=== PATIENT | female | born 1970 | race Caucasian/White ===

== ENCOUNTER 2021-04-20 14:11 | Emergency (ER) | payer OTHER, SELFPAY ==
--- NOTE | ~2021-04-20 | CT_ITS ---
EXAMINATION: CT SOFT TISSUE NECK WITH CONTRAST CLINICAL INFORMATION: Right-sided neck/throat pain. Swelling. Retroperitoneal abscess. Dental abscess. COMPARISON: None available. TECHNIQUE: Multidetector helical imaging was performed in the axial plane following the administration of 50 mL of Omnipaque 350 intravenous contrast. Multiple axial reformats and coronal/sagittal reconstructions were created the technologist workstation for review. This CT examination was performed using dose optimization techniques as appropriate, variously including the following: *Automated exposure control. *Adjustment of mA and/or kV according to patient size (this includes techniques or standardized protocols for targeted exams where dose is matched to indication/reason for exam; i.e. extremities or head). *Use of iterative reconstruction technique. DLP: 377 mGy-cm FINDINGS: No significant cutaneous thickening or subcutaneous inflammation. No discrete fluid collection within the deep tissues of the neck. The premaxillary, retromaxillary, pterygopalatine fossa, orbital apical, parapharyngeal, and prelaryngeal adipose tissue is maintained. Normal appearance of the parotid, submandibular, and thyroid glands. Scattered subcentimeter lymph nodes bilaterally, none of which are pathologically enlarged or abnormally enhancing. No demonstrated focal lesion or abnormal enhancement within the intrinsic tissues of the tongue or floor of mouth. Normal mucosal contours of the pharynx and larynx without abnormal enhancement. Normal appearance of the hyoid bone, thyroid cartilage, or cartilaginous trachea. The airways remains widely patent. No radiopaque foreign bodies. The atlantooccipital and atlantoaxial articulations remain well aligned. Reversal the normal cervical lordosis centered on C5-C6. No evidence of acute fracture or subluxation of the cervical spine. The vertebral body heights are maintained. Advanced degenerative disc disease at C5-C6 and C6-C7. Mild degenerative disc disease at all additional cervical levels. Facet and uncovertebral joint arthropathy leads to osseous encroachment on the neural foramina from C3-C7. No evidence of epidural collection. There is no prevertebral soft tissue swelling. Normal opacification of the cervical arterial and venous structures. The visualized portion of the skull base is without significant abnormalities. Moderate mucosal thickening of the paranasal sinuses. The mastoid air cells and middle ear cavities are clear. Multifocal maxillary and mandibular odontogenic enamel erosions. Periapical lucencies associated with the maxillary left 2nd molar, right 1st premolar, and mandibular right-sided molar. No discrete talita-odontogenic fluid collection. Moderate degenerative arthropathy of the temporal mandibular joints. CT Upper Chest: Biapical pleural scarring. The visualized lung apices and upper mediastinum are within normal limits. CT/CT soft tissue neck w con IMPRESSION: 1. No demonstrated focal lesion, collection, lymphadenopathy, or abnormal enhancement within the soft tissues of the neck. 2. Moderate to advanced multifocal odontogenic disease. No discrete talita-odontogenic fluid collection. 3. Moderate sinonasal mucosal disease.
[2021-04-20 14:13] VITALS: BP 107/68; PULSE 79; RESP 18; TEMP 37.1; O2SAT 98; BMI 20.7
--- NOTE | 2021-04-20 15:20 | ED_ITS ---
HPI - Dental/Oral General Chief complaint: Dental/Oral Stated complaint: Dental/oral Time Seen by Provider: 04/20/21 15:06 Source: patient Mode of arrival: ambulatory Limitations: no limitations History of Present Illness HPI Narrative: 50-year-old female with nonsignificant past medical history presents to the ED from dental office with concern for abscess. Patient is on day 5 oral antibiotic treatment( clindamycin) for right lower dental infection. Patient is scheduled for extraction tomorrow however dentist saw her today due to accelerated discomfort and trouble swelling. Patient states it feels like th e right side of her throat is swollen making it difficult to breathe and swallow at times. Denies fevers but admits to chills denies chest pain or shortness of breath denies abdominal pain nausea vomiting or recent changes in bowel or bladder habits. States she has been taking antibiotics as directed and has not missed a dose. Due to concern was recommended she come to the ED to rule out a deeper infection. Related Data Previous Rx's Medication Instructions Recorded oxycodone 5 mg PO Q6H PRN #8 tab 04/20/21 Allergies Allergy/AdvReac Type Severity Reaction Status Date / Time No Known Allergies Allergy Verified 04/20/21 14:12 Review of Systems Review of Systems: Constitutional : No Weight loss, No Fever, + Chills, No Night Sweats, No Fatigue, No Malaise ENT/Mouth : No Hearing loss, No Ear Pain, No Nasal Congestion, No Sinus Pain, No Hoarseness, No sore throat, No Rhinorrhea, + Swallowing pain, + dental pain Eyes: No Eye Pain, No Swelling, No Redness, No Foreign Body, No Discharge, No Vision Changes Cardiovascular : No Chest Pain, No SOB, No Dyspnea on Exertion, No Orthopnea, No Edema, No Palpitations Respiratory : No Cough, No Sputum, No Wheezing, No Smoke Exposure, No Dyspnea Gastrointestinal : No Nausea, No Vomiting, No Diarrhea, No Constipation, No abdominal Pain, No Hematochezia, No Melena Genitourinary : no irregular bleeding, No Dysuria, No Urinary Frequency, No Hematuria, No Urinary Incontinence, No Urgency, No Flank Pain, No Urinary Flow Changes, No Hesitancy Musculoskeletal : No joint pain, No Myalgias, No Joint Swelling Skin : No Skin Lesions, No rash Neuro : No Weakness, No Numbness, No Paresthesias, No Loss of Consciousness, No Dizziness, No Headache Psych : No Anxiety/Panic, No Depression, No SI/HI/AH/VH, No Social Issues, Heme/Lymph: No Bruising, No Bleeding,No Lymphadenopathy Endocrine : No Polyuria, No Polydipsia, No Temperature Intolerance [facility] Past Medical History Attestation statement: The following information was validated with the patient. Source: old records reviewed and obtained from family Medical History (Updated 04/20/21 @ 18:17 by KAYLA Sevilla) Anxiety Depression Rheumatoid arthritis Social History Social History Advance Directives: Yes Advance Directives Information Provided: Yes Advance Directives on File: No Patient : No Physical Exam Vital Signs: Vital Signs: Last Vital Signs Temp 97.5 F 04/20/21 17:25 Pulse 73 04/20/21 17:25 Resp 16 04/20/21 17:25 BP 113/68 04/20/21 17:25 Pulse Ox 100 04/20/21 17:25 Body Mass Index 20.7 vital signs have been reviewed as normal and appeared to be correct. Blood pressure normal. Heart rate normal. Respiration rate normal. Temperature normal. Oxygen saturation normal. Appearance: Alert. Oriented X3. No acute distress. Head: Normal external exam. Normocephalic. Atraumatic. No Sanchez signs noted. No raccoon eyes noted Eyes: PERRLA. EOMI. Conjunctiva and sclera normal. Eyelids normal. ENT: EAC normal. TM's Normal. Pharynx normal. Uvula midline. Moist mucous membranes. No trismus noted. No drooling noted. No muffled voice noted. + dental pain to right low posterior jaw, mild erythema and edema to this region without decrete abscess Neck: Normal inspection. Neck supple. FROM. No adenopathy. No meningeal signs. No neck mass noted.Pain to palpation of right anterior lateral neck muscles. Mild lymphadenopathy noted. CVS: Normal heart rate and rhythm. Heart sound normal. No murmurs noted. Pulses normal throughout. Respiratory: No respiratory distress. Painless inspiration. Breath sounds normal. No wheezes/rales/rhonchi noted. Chest nontender. No accessory muscle usage noted or decreased air movement noted. Abdomen: Soft and nontender. Bowel sounds normal in all 4 quadrants. No distention noted. Back: No CVA tenderness. Full range of motion noted. Skin: Skin warm and dry. Normal skin color. Normal skin turgor. No rashes/le sions/lacerations noted. Extremities: No lower extremity edema. Extremities exhibit normal range of motion. Extremities nontender. Neuro: Oriented X 3. No motor deficit. No sensory deficit. Course Reevaluation(s) Reevaluation #1: Patient's blood work and CT imaging returning without acute findings no evidence of [employer] or RPA. Patient did have improvement of symptoms with morphine still complaining of mild right-sided lower jaw pain. Given the absence of fever or leukocytosis do not think the patient requires change in antibiotic at this time feel that she would most benefit from tooth extraction scheduled for tomorrow. Spoke in length patient's preference is to go home I feel this is reasonable discharge home with continued pain meds and close outpatient follow-up as scheduled with strict return precautions. MDM - Dental/Oral MDM Narrative Medical decision making narrative: Patient's vital signs are stable and she is afebrile. Patient presenting to the ED with progressive right lower dental infection and new pain with swelling and difficulty breathing. Concern for deeper infection such as peritonsillar abscess or retropharyngeal abscess as exist. No signs of peritonsillar abscess on exam no uvula deviation no soft palate fullness no trismus. Tenderness to palpation of the right anterior neck concerning for our RPA will obtain CT scan of this region looking for evidence of deep/extensive dental infection and/or RPA will obtain basic blood work and COVID swab. Will continue to monitor and reassess pending the above. Of note no palpable dental abscess or collection noted on exam that would benefit from drainage in the ED today. Lab Data Result diagrams: 04/20/21 15:30 04/20/21 15:30 Labs: Lab Results 04/20/21 04/20/21 04/20/21 Range/Units 15:30 15:30 15:30 WBC 7.4 (4.8-10.8) X10*3/uL RBC 3.81 L (4.20-5.50) X10*6/uL Hgb 12.4 (12.0-16.0) g/dl Hct 37.2 (37-47) % MCV 97.6 (80-98) fL MCH 32.5 (27.0-33.0) pg MCHC 33.3 (31.0-35.0) g/dl RDW 13.9 (11.0-16.0) % Plt Count 223 (160-400) X10*3/uL MPV 8.9 L (9.4-12.3) fL Immature Gran % (Auto) 0.4 (0.0-0.4) % Neut % (Auto) 58.1 (45-73) % Lymph % (Auto) 25.1 (20-40) % Coos % (Auto) 9.4 (2-11) % Eos % (Auto) 5.9 H (0-4) % Baso % (Auto) 1.1 (0-2) % Lymph # (Auto) 1.9 (1.2-4.9) X10*3/uL Coos # (Auto) 0.7 (0.1-1.2) X10*3/uL Eos # (Auto) 0.4 (0.0-0.4) X10*3/uL Baso # (Auto) 0.1 (0.0-0.2) X10*3/uL Abs Immat Gran (auto) 0.03 (0.00-0.03) X10*3/uL Absolute Neuts (auto) 4.3 (2.0-8.3) X10*3/uL Absolute Nucleated RBC 0.000 (0.0-0.012) X10*3/uL Nucleated RBC % (auto) 0.0 (0.0-0.2) /100WBC Sodium 141 (135-145) mmol/L Potassium 4.0 (3.3-5.1) mmol/L Chloride 98 (96-108) mmol/L Carbon Dioxide 35 H (22-29) mmol/L Anion Gap 12 (12-20) BUN 13 (9-16) mg/dL Creatinine 1.11 (0.5-1.4) mg/dL Estim Creat Clear Calc 49.6 Estimated GFR 52 Random Glucose 93 (60-115) mg/dL Calcium 9.2 (8.4-10.2) mg/dL Total Bilirubin 0.3 (0.0-1.0) mg/dL AST 35 H (5-31) U/L ALT 15 (0-31) U/L Alkaline Phosphatase 47 (39-117) U/L Total Protein 6.6 (6.5-8.0) g/dL Albumin 3.7 (3.5-5.0) g/dL COVID-19 (MANGO) Negative (Negative) COVID-19 Clin Com See Note Discharge Plan Discharge Clinical Impression: Dental abscess Patient Disposition: Home, Self-Care Instructions: Dental Abscess (ED) Additional Instructions: You were seen in the emergency department today due to ongoing right lower jaw pain and swelling as well as involvement of the right throat/neck. Blood work was drawn and was normal. A CT scan of your neck was performed without evidence of abscess in the mouth that would benefit from drainage or in the neck. Your pain is likely secondary to dental infection/small abscess underneath the tooth itself it is important that you follow through with appointment tomorrow to have this pulled. Continue home antibiotics as directed. Use oxycodone as needed for severe pain. Prescriptions: New oxycodone 5 mg tablet 5 mg PO Q6H PRN (Reason: pain) Qty: 8 RF: 0 Interventions: ED Discharge Assessment Last Done: 04/20/21 18:30 Discharge Date/Time: 04/20/21 18:37 Print Language: Estonian
[2021-04-20 15:35] LABS: MANUAL DIFF FLAG NO
[2021-04-20] MEDS: Morphine Sulfate 4 MG/ML CARTRIDGE IVPUSH ×2 (15:36→17:56)
[2021-04-20 15:40] LABS: Basophils Absolute Auto 0.1 X10*3/uL (0.0-0.2); Basophils Percent Auto 1.1 % (0-2); Eosinophils Absolute Auto 0.4 X10*3/uL (0.0-0.4); Eosinophils Percent Auto 5.9 % (0-4); Hematocrit 37.2 % (37-47); Hemoglobin 12.4 g/dl (12.0-16.0); Imm Gran Abs Auto 0.03 X10*3/uL (0.00-0.03); Imm Gran Pct Auto 0.4 % (0.0-0.4); Lymphocytes Absolute Auto 1.9 X10*3/uL (1.2-4.9); Lymphocytes Percent Auto 25.1 % (20-40); Mean Corpuscular HGB Conc 33.3 g/dl (31.0-35.0); Mean Corpuscular Hemoglobin 32.5 pg (27.0-33.0); Mean Corpuscular Volume 97.6 fL (80-98); Mean Platelet Volume 8.9 fL (9.4-12.3); Monocytes Absolute Auto 0.7 X10*3/uL (0.1-1.2); Monocytes Percent Auto 9.4 % (2-11); Neutrophils Absolute Auto 4.3 X10*3/uL (2.0-8.3); Neutrophils Percent Auto 58.1 % (45-73); Platelet Count 223 X10*3/uL (160-400); Red Blood Count 3.81 X10*6/uL (4.20-5.50); Red Cell Distribution Width 13.9 % (11.0-16.0); White Blood Count 7.4 X10*3/uL (4.8-10.8)
--- NOTE | 2021-04-20 15:41 | PC.NURSE ---
20 ga iv initiated l ac. pt has no muffling or drooling noted. ct ordered, awatiing lab results prior to ct.
[2021-04-20 15:59] LABS: Alanine Aminotransferase 15 U/L (0-31); Albumin Level 3.7 g/dL (3.5-5.0); Alkaline Phosphatase 47 U/L (39-117); Anion Gap 12 (12-20); Aspartate Amino Transferase 35 U/L (5-31); Bilirubin Total 0.3 mg/dL (0.0-1.0); Blood Urea Nitrogen 13 mg/dL (9-16); COVID-19 Test Negative (Negative); Calcium 9.2 mg/dL (8.4-10.2); Carbon Dioxide 35 mmol/L (22-29); Chloride 98 mmol/L (96-108); Creatinine Clr Calc Pharmacy 49.6; Estimated Glomerular Filt Rate 52; Glucose Random 93 mg/dL (60-115); Sodium 141 mmol/L (135-145); Total Protein 6.6 g/dL (6.5-8.0)
[2021-04-20] MEDS: iohexoL 350 MG/ML 100 ML INFUS..BTL IV (16:41)
[2021-04-20 17:25] VITALS: BP 113/68; PULSE 73; RESP 16; TEMP 36.4; O2SAT 100
== END 2021-04-20 18:37 | disposition home or self-care (01) ==
PROVIDERS: Physician Assistant; Emergency Provider Emergency Medicine; PCP Internal Medicine
DX: K04.7 Periapical abscess without sinus (principal); M54.2 Cervicalgia; R07.0 Pain in throat; Z20.822 Contact with and (suspected) exposure to COVID-19; Z79.899 Other long term (current) drug therapy
CPT/HCPCS: 36415; 70491; 80053; 85025; 87635; 96374; 96375; 99284; J2270; Q9967

== ENCOUNTER 2023-04-01 16:15 | Outpatient (REF) | payer OTHER, SELFPAY ==
--- NOTE | ~2023-04-01 | XR_ITS ---
EXAMINATION: XR WRIST, RIGHT CLINICAL INFORMATION: Right wrist pain COMPARISON: Right hand 10/24/2018 TECHNIQUE: PA, lateral, and oblique views of the right wrist. FINDINGS: Redemonstration of slight ulnar minus variance. Stable subtle deformity along the mid shaft of the fifth metacarpal, possibly related to prior trauma. Progression of advanced degenerative changes first carpometacarpal joint with joint space narrowing and hypertrophic change. XR/XR wrist RT min 3V IMPRESSION: 1. Progression of advanced degenerative changes first carpometacarpal joint. 2. No displaced fracture. Recommend follow-up imaging in 10-14 days if fracture is suspected. Stat report provided to referring provider as requested at time the exam was presented for interpretation.
== END 2023-04-01 16:16 | disposition home or self-care (01) ==
LOC: HO.HMGCX 16:15
PROVIDERS: PCP Internal Medicine; Visit Provider Internal Medicine Rheumatology
DX: M06.9 Rheumatoid arthritis, unspecified (principal)
CPT/HCPCS: 73110

== ENCOUNTER 2025-01-17 13:37 | Outpatient (REF) | payer OTHER, SELFPAY ==
[2025-01-17 16:00] LABS: MANUAL DIFF FLAG NO
[2025-01-17 16:04] LABS: Basophils Absolute Auto 0.1 X10*3/uL (0.0-0.2); Eosinophils Absolute Auto 0.5 X10*3/uL (0.0-0.4); Eosinophils Percent Auto 5.7 % (0-4); Hematocrit 41.7 % (37.0-47.0); Hemoglobin 14.5 g/dl (12.0-16.0); Imm Gran Abs Auto 0.02 X10*3/uL (0.00-0.03); Imm Gran Pct Auto 0.3 % (0.0-0.4); Lymphocytes Percent Auto 50.6 % (20-40); Mean Corpuscular HGB Conc 34.8 g/dl (31.0-35.0); Mean Corpuscular Volume 89.1 fL (80.0-98.0); Monocytes Absolute Auto 0.8 X10*3/uL (0.1-1.2); Monocytes Percent Auto 10.2 % (2-11); Neutrophils Absolute Auto 2.5 x10*3/uL (2.0-8.3); Neutrophils Percent Auto 32.2 % (45-73); Platelet Count 318 X10*3/uL (160-400); Red Blood Count 4.68 X10*6/uL (4.20-5.50); Red Cell Distribution Width 13.2 % (11.0-16.0); White Blood Count 7.9 X10*3/uL (4.8-10.8)
[2025-01-17 16:15] LABS: Prothrombin Time 11.4 SEC (10.9-12.4)
--- OUTSIDE RECORDS SUMMARY | 2025-01-17 16:28 | XMS_ITS | Encounter Summary ---
Author Organization [employer] Address [address] [place] [address] Care Team Providers Care Shell Sorter Name Role Phone Unavailable Primary Care Provider Unavailabl e Encounter Details Date Type Department Care Team (Late st Contact Info) Description 12/10/2022 Abstract [facility] [address] [place] [address] Yogesh Salvador DMD Social History Tobacco Use Types Packs/Day Years Used Date Smoking Tobacco: Former Cigarettes Smokeless Tobacco: Never Alcohol Use Standard Drinks/Week Comments Yes 0 (1 standard drink = 0.6 oz pur e alcohol) Comments Unknown Sex and Gender Information Value Date Recorded Sex Assigned at Female 08/09/2022 10:35 AM EDT Legal Sex Female 10:35 AM EDT Gender Identity Female 08/09/2022 10:35 AM EDT Sexual Orientation Straight 08/09/2022 10 :35 AM EDT COVID-19 Exposure Response Date Recorded In the last 10 days, have yo u been in contact with someone who was confirmed or suspected to have Coronavirus/COVID-19? No / Unsure 12/02/2022 2:59 PM EST documented as of this encounter Plan of Treatment Not on file documented as of this encounter Visit Diagnoses Not on filedocumented in this encounter
--- OUTSIDE RECORDS SUMMARY | 2025-01-17 16:28 | XMS_ITS | Encounter Summary ---
Author Organization [facility] Address [address] [place] [address] Care Team Providers Care Health Care Aide Name Role Phone Sandro Dowling MD Primary Care Provider [phone] Reason for Visit * Reason Comments Consult EP EVAL Encounter Details Date Type Department Care Team (Late st Contact Info) Description 01/15/2025 8:[address] [facility] [address] [facility] [address] [place] [phone] Sandro Waller MD [address] [facility] [address] [place] [address] PSVT (paroxysmal supraventricular tachycardia) (CMS/HCC V24) (Primary Dx) Social History Tobacco Use Types Packs/Day Years Used Date Smoking Tobacco: Former Cigarettes Smokeless Tobacco: Never Comments:Quit August or 2022. Alcohol Use Standard Drinks/Week Comments Yes 0 (1 standard drink = 0.6 oz pur e alcohol) RARELY Comments Unknown Sex and Gender Information Value Date Recorded Sex Assigned at Not on file Legal Sex Female 10:14 AM EST Gender Identity Not on file Sexual Orientation Not on file documented as of this encounter Last Filed Vital Signs Vital Sign Reading Time Taken Comments Blood Pressure 102/68 01/15/2025 8:30 AM EDT Pulse 82 01/15/2025 8:30 AM EDT Temperature - - Respiratory Rate - - Oxygen Saturation 97% 01/15/2025 8:30 AM EDT Inhaled Oxygen Concentration - - Weight 51.7 kg (114 lb) 01/15/2025 8:30 AM EDT Height 153 cm (5' 0.25 ) 01/15/2025 8:30 AM EDT Body Mass Index 22.08 01/15/2025 8:30 AM EDT documented in this encounter Ordered Prescriptions Prescription Sig Dispense Quantity Refills Last Filled Start Date End Date propranolol LA (Inderal LA) 60 mg 24 hr capsule Take 1 capsule (60 mg total) by mouth 1 (one) time each day. Do not crush, chew, or split. 30 each 11 01/15/2025 documented in this encounter Progress Notes * Sandro Waller MD - 01/15/2025 8:40 AM EDT Dear Sandro Dowling MD: Thank you for requesting cardiology consultation on your patient, Chhaya Frazier. As you know,this is a 54-year-old female with a history of Gitelman syndrome, rheumatoid arthritis and possiblySjogren's syndrome. She has been troubled by episodes of fainting where she feels like her heart isbeating rapidly and about to jump out of her chest. Few of these have led to loss of consciousness with others resolving spontaneously. She wore a Holter monitor where she reported palpitations on several occasions but there was no arrhythmia. He did have a 7 Day Loop recorder that I am not able toreview that showed some periods of transient tachycardia. Echocardiogram very recently that was normal with normal LV function. She has no significant valvular disease. Previous echo suggested possible right ventricular hypertrophy but it is not evident on this study and there is no pulmonary hypertension or tricuspid valve or pulmonic valve abnormalities. Her baseline ECG is normal with a slightly vertical axis. There is a narrow QRS complex and normal LA interval. The patient was seen in the emergency room for palpitations yesterday and was given some potassium and magnesium for mild hypokalemia and hypomagnesemia but otherwise was found to have no significant arrhythmias. There is a strong family history of premature coronary disease and cardiac arrest. PAST MEDICAL HISTORY: Patient Active Problem List Diagnosis Date Noted Palpitations 01/08/2025 Syncope 12/17/2024 Abnormal ECG 12/17/2024 PSVT (paroxysmal supraventricular tachycardia) (CMS/HCC) 12/14/2024 FAMILY HISTORY: Family History Problem Relation Name Age of Onset Heart attack Father Other (CABG) Father Other (CARDIAC ARREST) Father Heart attack Maternal Grandmother Other (CARDIAC ARREST) Paternal Grandfather SOCIAL HISTORY: Social History Tobacco Use Smoking status: Former Types: Cigarettes Smokeless tobacco: Never Tobacco comments: Quit August or September 2023. Substance Use Topics Alcohol use: Yes Comment: RARELY ACTIVE MEDICATIONS: Outpatient Medications Marked as Taking for the 01/15/25 encounter (Consult) with Sandro Waller MD Medication Sig Dispense Refill adalimumab-atto (Amjevita,CF, Autoinjector) 40 mg/0.8 mL auto-injector Inject 40 mg under the skin every 14 (fourteen) days. albuterol HFA (PROAIR HFA ; PROVENTIL HFA ; VENTOLIN HFA) 90 mcg/actuation inhaler Inhale 2 puffs by mouth every 6 (six) hours if needed for wheezing. busPIRone (BUSPAR) 15 mg tablet Take 1 tablet (15 mg total) by mouth at bedtime. diclofenac (VOLTAREN) 75 mg EC tablet Take 1 tablet (75 mg total) by mouth 1 (one) time each day ifneeded. Do not crush, chew, or split. DULoxetine (CYMBALTA) [address] capsule Take 1 capsule (30 mg total) by mouth 1 (one) time each day.Taken with 60 mg to equal 90 mg DULoxetine (CYMBALTA) [address] capsule Take 1 capsule (60 mg total) by mouth 1 (one) time each day.Taken with 30 mg to equal 90 mg estradioL (ESTRACE) 1 mg tablet Take 1 tablet (1 mg total) by mouth 1 (one) time each day. folic acid (FOLVITE) 1 mg tablet Take by mouth 1 (one) time each day. gabapentin (NEURONTIN) 100 mg capsule Take 4 capsules (400 mg total) by mouth at bedtime. levothyroxine (SYNTHROID, LEVOTHROID) 100 mcg tablet Take by mouth 1 (one) time each day before breakfast. magnesium oxide 500 mg magnesium tablet Take 500 mg by mouth 2 (two) times a day. meclizine HCl (MECLIZINE ORAL) Take 25 mg by mouth every 12 (twelve) hours if needed. methotrexate 2.5 mg tablet Take 8 tablets (20 mg total) by mouth 1 (one) time per week Follow directions carefully, and ask to explain any part you do not understand. Take exactly as directed. omeprazole (PriLOSEC) [address] capsule Take 1 capsule (20 mg total) by mouth 1 (one) time each day if needed. Do not crush or chew. oxyCODONE-acetaminophen (PERCOCET) 10-325 mg per tablet Take 1 tablet by mouth every 6 (six) hours if needed for severe pain. Max Daily Amount: 4 tablets potassium chloride (KLOR-CON M10) 10 mEq CR tablet Take 2 tablets (20 mEq total) by mouth 2 (two) times a day. Tablet may be swallowed whole (do not crush/chew/suck on) OR broken in half and each half swallowed separately OR dissolved (whole tablet) in ~4 ounces of water (allow ~2 minutes to dissolve, stir well and administer immediately). spironolactone (ALDACTONE) 25 mg tablet Take 1 tablet (25 mg total) by mouth 2 (two) times a day. ALLERGIES: Allergies Allergen Reactions Medrol [Methylprednisolone] Sumatriptan PHYSICAL EXAM: Vitals: 01/15/25 0830 BP: 102/68 BP Location: Right arm Patient Position: Sitting Pulse: 82 SpO2: 97% Weight: 51.7 kg (114 lb) Height: 1.53 m (60.25 ) APPEARANCE: Alert and in no acute distress EYES: PERRL, conjunctiva and sclera normal NECK: Neck supple, 2+ carotid pulses, No bruits. HEART: RRR with normal S1 and S2, no murmurs, no gallops, no JVD appreciated LUNG: clear to auscultation ABDOMEN: Bowel sounds normoactive, no bruits, soft, non-tender, without organomegaly or palpable masses, no abdominal bruits EXTREMITIES: Extremities warm and well perfused without clubbing, cyanosis, or edema NEURO: Awake, alert and oriented x 3, Cranial nerves II-XII grossly intact SKIN: Skin color, texture, turgor normal. No rashes or lesions. PSYCH: Mood and affect are appopriate. MSK: Moves all extremities EKG: Sinus rhythm 82 bpm. Vertical axis but otherwise normal. TESTING: Reviewed echocardiogram and Holter monitor Recent ER laboratories reviewed. White count 6.5, hematocrit 45.8, platelets 287, potassium 3.4, creatinine 0.99, magnesium 1.6, TSH 2.89 ASSESSMENT/PLAN: Problem List Items Addressed This Visit PSVT (paroxysmal supraventricular tachycardia) ([facility]) - Primary Relevant Orders ECG 12 lead (Completed) Orders Placed This Encounter Procedures ECG 12 lead 1. Syncope 2. Palpitations This delightful 54-year-old female with Gitleman syndrome resulting in hypokalemia and hypomagnesemia presents with recurrent syncope that is likely blood pressure related. She tends to run a very low blood pressure and I suspect that she is having an orthostatic response to hypotension. I am awaiting the report to review her 7-day monitor but given there was some transient tachycardia I think trial of a low-dose beta-jose would be reasonable. The blood pressure lowering effects are generally quite minimal at low dose in patients with a hypertension. If it does result in worsening low blood pressure then we can try fludrocortisone. I would not rule out electrophysiologic study and ablation but I need to review the 7-day monitor and it does not sound like she is likely to have arrhythmia amenable to ablation. Implantable loop recorder is reasonable given her symptoms and recurrent syncope but I have a low suspicion that she will have a malignant arrhythmia as etiology based on the Ho lter having many episodes of palpitations without a corresponding arrhythmia. I did encourage her to maintain adequate salt intake for improved blood pressure and will trial 60 mg of long-acting propranolol. I reviewed the potential side effects of beta-blockers and she is in agreement to a trial. Thank you for requesting cardiology consultation on this interesting patient. Sincerely, cc: Sandro Dowling MD documented in this encounter Plan of Treatment Upcoming Encounters Date Type Department Care Team (Latest Contact Info) Description 01/25/2025 10:00 AM EDT Hospital Encounter [facility] [address] [place] [phone] Sandro Waller MD [address] [address] PSVT (paroxysmal supraventricular tachycardia) (CMS/HCC V24); Syncope, unspecified syncope type 01/25/2025 10:00 AM EDT - 01/25/2025 10:30 AM EDT Surgery [facility] [address] [place] [phone] Sandro Waller MD [address] [facility] [address] [place] [address] Loop recorder insertion [53862 (CPT??)] documented as of this encounter Procedures Procedure Name Priority Date/Time Associated Diagnosis Comments ECG 12-LEAD Routine 01/15/2025 9:28 AM EDT PSVT (paroxysmal supraventricular tachycardia) ([facility] V24) documented in this encounter Results * ECG 12 lead (01/15/2025 9:28 AM EDT) Ventricular Rate ECG 82 BPM GEMUSE Atrial Rate 82 BPM GEMUSE P-R Interval 152 ms GEMUSE QRS Duration 88 ms GEMUSE Q-T Interval 390 ms GEMUSE QTc 455 ms GEMUSE P Wave Crawley 83 degrees GEMUSE R Crawley -106 degrees GEMUSE T Crawley 76 degrees GEMUSE ECG Interpretation Normal sinus rhythm Right superior axis deviation Pulmonary disease pattern Abnormal ECG When compared with ECG of 18-DEC-2024 09:00, Incomplete right bundle branch block is no longer Present GEMUSE 01/15/2025 8:35 AM EDT Narrative GEMUSE - 01/15/2025 9:28 AM EDT Normal sinus rhythm 82 bpm. ??Vertical axis. us Sandro Waller MD ECG ORDERABLES Final Result GEMUSE documented in this encounter Visit Diagnoses Diagnosis PSVT (paroxysmal supraventricular tachycardia) ([facility]/HCC V24) Paroxysmal supraventricular tachycardia Syncope, unspecified syncope type PSVT (paroxysmal supraventricular tachycardia) (CMS/HCC V24)- Primary Paroxysmal supraventricular tachycardia PSVT (paroxysmal supraventricular tachycardia) (CMS/HCC V24) Paroxysmal supraventricular tachycardia Syncope, unspecified syncope type documented in this encounter Historical Medications * This list may reflect changes made after this encounter. magnesium oxide 500 mg magnesium tablet Take 500 mg by mouth 2 (two) times a day. 10/12/2023 added in this encounter Care Teams Health Care Aide Relationship Specialty Start Date End Date Sandro Dowling MD [address] [place] [address] PCP - General Internal Medicine 11/28/24 documented as of this encounter
--- OUTSIDE RECORDS SUMMARY | 2025-01-17 16:28 | XMS_ITS | Clinical Summary ---
Author Organization [facility] Facility Address [address] [address] Care Team Providers Care Construction Tech Name Role Phone Sandro Dowling MD Primary Care Provider [phone] Medications Acetaminophen Extra Strength 500 MG tablet Take 500 mg by mouth every 6 (six) hours if needed 04/15/2021 Active adalimumab (Humira Pen) 40 MG/0.8ML Pen-injector Kit Comments: Filled Date: Jan 29 2015 12:00AM Duration: 12/31/2014 Active amitriptyline (ELAVIL) 25 MG tablet Take 25 mg by mouth at bed time 03/31/2021 Active DULoxetine (CYMBALTA) [address] capsule Take by mouth 1 (one) time each day 04/14/2021 Active folic acid (FOLVITE) 1 MG tablet Take 1,000 mcg by mouth 1 (one) time each day 04/16/2021 Active levothyroxine (SYNTHROID, LEVOTHROID) 100 MCG tablet Comments: Filled Date: Aug 09 2014 12:00AM Patient Notes: take 1 tablet by mouth every morning 5 DAYS A WEEK, SKIP TUESDAY AND TUESDAY Duration: 08/09/2014 Active methocarbamol (ROBAXIN) 750 MG tablet TAKE 1 TABLET BY MOUTH TWICE DAILY NEEDED 02/26/2021 Active oxyCODONE-aceta minophen (PERCOCET) 10-325 MG per tablet TAKE 1 TABLET BY MOUTH EVERY 6 HOURS NEEDED FOR PAIN 04/18/2021 Active methotrexate 2.5 MG tablet Take 8 tablets by mouth 1 (one) time per week 07/31/2014 Active potassium chloride (KLOR-CON M20) 20 MEQ CR tablet Take 2 tablets by mouth 2 (two) times a day 08/09/2014 Active predniSONE (DELTASONE) 2.5 MG tablet Take 2.5 mg by mouth 2 (two) times a day 04/16/2021 Active spironolactone (ALDACTONE) 25 MG tablet Take 1 tablet by mouth 2 (two) times a day 08/09/2014 Active Magnesium Oxide (MAG-OX 400 PO) Take 400 mg by mouth 2 (two) times a day Active Active Problems Problem Noted Date Diagnosed Date Alkalosis 05/08/2021 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 Hypokalemia 05/08/2021 Family History Medical History Relation Comments Cancer Father prostate Heart disease Father Relation Status Comments Father Social History Tobacco Use Types Packs/Day Years Used Date Smoking Tobacco: Former Cigarettes 0 10/10/1982 - 10/10/2014 Alcohol Use Standard Drinks/Week Comments Yes 0 (1 standard drink = 0.6 oz pure alcohol) Alcoholic Drinks/day: Occasional social drink Comments Unknown Sex and Gender Information Value Date Recorded Sex Assigned at Not on file Legal Sex Female 5:22 PM EST Gender Identity Not on file Sexual Orientation Not on file Last Filed Vital Signs Vital Sign Reading Time Taken Comments Blood Pressure 100/62 10/21/2020 12:00 PM EST Pulse 78 10/21/2020 12:00 PM EST Temperature - - Respiratory Rate - - Oxygen Saturation 98% 10/21/2020 12:00 PM EST Inhaled Oxygen Concentration - - Weight 52.2 kg (115 lb) 10/21/2020 12:00 PM EST Height 160 cm (5' 3 ) 10/21/2020 12:00 PM EST Body Mass Index 20.37 10/21/2020 12:00 PM EST Plan of Treatment Health Maintenance Due Date Last Done Comments Breast Cancer Screening 1969 Hepatitis B Vaccine (1 of 3 - 19+ 3-dose series) 1988 Colorectal Cancer Screening: Annual FOBT 2018 Colorectal Cancer Screening: Colonoscopy 2018 Colorectal Cancer Screening: Sigmoidoscopy 2018 Influenza Vaccine Completed 06/21/2024, 06/24/2022, 06/25/2021 Pneumococcal Vaccine: Peds ( 0 to 5 Years) and At-Risk Patients (6 to 49 Years) Aged Out No longer eligi ble based on patient's age to complete this topic Insurance [facility] Care Teams Construction Tech Relationship Specialty Start Date End Date Sandro Dowling MD [address] [address] PCP - General 10/20/20
--- OUTSIDE RECORDS SUMMARY | 2025-01-17 16:28 | XMS_ITS | Clinical Summary ---
Author Organization [facility] Address [address] [place] [address] Phone Care Team Providers [employer] Name Role Phone Sandro Dowling MD Primary Care Provider Allergies Active Allergy Reactions Criticality Noted Date Comments Methylprednisolone 12/18/2024 Sumatriptan 12/18/2024 Medications DULoxetine (CYMBALTA) [address] capsule Take 1 capsule (30 mg total) by mouth 1 (one) time each day. Taken with 60 mg to equal 90 mg Active DULoxetine (CYMBALTA) [address] capsule Take 1 capsule (60 mg total) by mouth 1 (one) time each day. Taken with 30 mg to equal 90 mg Active potassium chloride (KLOR-CON M10) 10 mEq CR tablet Take 2 tablets (20 mEq total) by mouth 2 (two) times a day. Tablet may be swallowed whole (do not crush/chew/suck on) OR broken in half and each half swallowed separately OR dissolved (whole tablet) in ~4 ounces of water (allow ~2 minutes to dissolve, stir well and administer immediately). Active spironolactone (ALDACTONE) 25 mg tablet Take 1 tablet (25 mg total) by mouth 2 (two) times a day. Active folic acid (FOLVITE) 1 mg tablet Take by mouth 1 (one) time each day. Active methotrexate 2.5 mg tablet Take 8 tablets (20 mg total) by mouth 1 (one) time per week Follow directions carefully, and ask to explain any part you do not understand. Take exactly as directed. Active adalimumab-atto (Amjevita,CF, Autoinjector) 40 mg/0.8 mL auto-injector Inject 40 mg under the skin every 14 (fourteen) days. Active gabapentin (NEURONTIN) 100 mg capsule Take 4 capsules (400 mg total) by mouth at bedtime. Active busPIRone (BUSPAR) 15 mg tablet Take 1 tablet (15 mg total) by mouth at bedtime. Active estradioL (ESTRACE) 1 mg tablet Take 1 tablet (1 mg total) by mouth 1 (one) time each day. Active levothyroxine (SYNTHROID, LEVOTHROID) 100 mcg tablet Take by mouth 1 (one) time each day before breakfast. Active oxyCODONE-aceta minophen (PERCOCET) 10-325 mg per tablet Take 1 tablet by mouth every 6 (six) hours if needed for severe pain. Max Daily Amount: 4 tablets Active omeprazole (PriLOSEC) [address] capsule Take 1 capsule (20 mg total) by mouth 1 (one) time each day if needed. Do not crush or chew. Active diclofenac (VOLTAREN) 75 mg EC tablet Take 1 tablet (75 mg total) by mouth 1 (one) time each day if needed. Do not crush, chew, or split. Active meclizine HCl (MECLIZINE ORAL) Take 25 mg by mouth every 12 (twelve) hours if needed. Active albuterol HFA (PROAIR HFA ; PROVENTIL HFA ; VENTOLIN HFA) 90 mcg/actuation inhaler Inhale 2 puffs by mouth every 6 (six) hours if needed for wheezing. Active magnesium oxide 500 mg magnesium tablet Take 500 mg by mouth 2 (two) times a day. 4 Active propranolol LA (Inderal LA) 60 mg 24 hr capsule Take 1 capsule (60 mg total) by mouth 1 (one) time each day. Do not crush, chew, or split. 30 each 11 5 Active Active Problems Problem Noted Date Diagnosed Date Palpitations 01/08/2025 Syncope 12/17/2024 Assessment & Plan (12/20/2024 9:07 AM EDT): It is uncommon for SVT to result in loss of consciousness. She may potentially have intermittent atrial flutter with extremely rapid conduction. ILR implantation is recommended. Orders: ECG 12 lead Transthoracic echocardiogram (TTE) complete with PRN contrast, bubble, strain, and 3D order panel; Future Case Request EP Lab: Loop recorder insertion Abnormal ECG 12/17/2024 Assessment & Plan (12/20/2024 9:07 AM EDT): Orders: ECG 12 lead Transthoracic echocardiogram (TTE) complete with PRN contrast, bubble, strain, and 3D order panel; Future PSVT (paroxysmal supraventri cular tachycardia) (CMS/HCC V24) 12/14/2024 Assessment & Plan (12/20/2024 9:07 AM EDT): I had the chance to review the Holter monitor and some of the tracings suggest atrial flutter with a rapid ventricular response. Definitive diagnostic assessment with ILR implantation is recommended. This will hopefully allow for potential targeted ablation options. Orders: Ambulatory referral to Cardiology ECG 12 lead Transthoracic echocardiogram (TTE) complete with PRN contrast, bubble, strain, and 3D order panel; Future Case Request EP Lab: Loop recorder insertion Encounters Date Type Department Care Team Description 01/15/2025 8:40 AM EDT Consult [facility] Cardiology [facility] [address] [place] [address] Sandro Waller MD PSVT (paroxysmal supraventricular tachycardia) (CMS/HCC V24) (Primary Dx) 12/26/2024 Telephone [facility] Cardiology [facility] [address] [place] [address] Sandro Waller MD Procedure ( ILR Implant 4.18.25) 12/19/2024 10:30 AM EDT Ancillary Procedure [facility] Cardiology [facility] [address] [place] [address] PSVT (paroxysmal supraventricular tachycardia) (CMS/HCC V24); Syncope, unspecified syncope type; Abnormal ECG; RVH (right ventricular hypertrophy) 12/18/2024 8:50 AM EDT Office Visit [facility] Cardiology [facility] [address] [place] [address] Sandro Lindsay MD PSVT (paroxysmal supraventricular tachycardia) ([facility] V24) (Primary Dx); Syncope, unspecified syncope type; Abnormal ECG; RVH (right ventricular hypertrophy) 12/07/2024 Telephone [facility] Cardiology [facility] [address] [place] [address] Sandro Dowling MD 11/16/2024 Telephone [facility] Cardiology [facility] [address] [place] [address] Sandro Dowling MD Referral (Received routine paper referral - ) from Last 3 Months Medical History Medical History Date Comments Rheumatoid arthritis ([facility] V24, [facility] V28) Hypothyroidism Sjogren's syndrome ([facility] V24) Family History Medical History Relation Name Comments CABG Father CARDIAC ARREST Father Heart attack Father Heart attack Maternal Grandmother CARDIAC ARREST Paternal Grandfather Relation Name Status Comments Father Maternal Grandmother Paternal Grandfather Social History Tobacco Use Types Packs/Day Years Used Date Smoking Tobacco: Former Cigarettes Smokeless Tobacco: Never Tobacco Cessation:Counseling Given: Not Answered Comments:Quit August or September 2023. Alcohol Use Standard Drinks/Week Comments Yes 0 (1 standard drink = 0.6 oz pur e alcohol) RARELY Comments Unknown Sex and Gender Information Value Date Recorded Sex Assigned at Not on file Legal Sex Female 10:14 AM EST Gender Identity Not on file Sexual Orientation Not on file Obstetrics History Last Filed Vital Signs Vital Sign Reading [...] Mass Index 22.08 01/15/2025 8:30 AM EDT Plan of Treatment Upcoming Encounters Date Type Department Care Team (Latest Contact Info) Description 01/25/2025 10:00 AM EDT Hospital Encounter [facility] [employer] [address] [place] [id number] Sandro Waller MD [address] [address] PSVT (paroxysmal supraventricular tachycardia) ([facility] V24); Syncope, unspecified syncope type 01/25/2025 10:00 AM EDT - 01/25/2025 10:30 AM EDT Surgery [facility] Cardiac [employer] [address] [place] [phone] Sandro Waller MD [address] [address] Loop recorder insertion [37834 (CPT??)] Health Maintenance Due Date Last Done Comments Hepatitis B Vaccines (1 of 3 - 19+ 3-dose series) 1988 Cervical Cancer Screening: Pap Smear 1990 Pneumococcal Vaccine: 50+ Years (1 of 1 - PCV) 2019 Colorectal Cancer Screening: Colonoscopy 09/07/2022 Depression Screening 09/07/2022 HIV Screening 09/07/2022 Hepatitis C Screening 09/07/2022 Social Influencers of Health Screening 09/07/2022 Zoster Vaccines (2 of 2) 06/28/2023 05/03/2023 COVID-19 Vaccine ( - season) 2024 08/21/2021, 11/20/2020, 10/23/2020 Breast Cancer Screening 10/12/2024 10/12/19 23, 02/24/2021, 08/03/2019 DTaP,Tdap,and Td Vaccines (2 - Td or Tdap) 11/22/2032 11/22/2022 Influenza Vaccine Completed 06/21/2024, , 06/24/2022, Additional history exists HIB Vaccines Aged Out No longer eligi ble based on patient's age to complete this topic HPV Vaccines Aged Out No longer eligi ble based on patient's age to complete this topic Hepatitis A Vaccines Aged Out No long er eligible based on patient's age to complete this topic IPV Vaccines Aged Out No longer eligi ble based on patient's age to complete this topic MMR Vaccines Aged Out No longer eligi ble based on patient's age to complete this topic Meningococcal ACWY Vaccine Aged Out N o longer eligible based on patient's age to complete this topic Meningococcal B Vaccine Aged Out No l onger eligible based on patient's age to complete this topic Pneumococcal Vaccine: Pediatrics (0 to 5 Years) and At-Risk Patients (6 to 64 Years) Aged Out No longer eligible based on patient's age to complete this topic RSV Immunization Patients Under 20 months Aged Out No longer eligible based on patient's age to complete this topic Varicella Vaccines Aged Out No longer eligible based on patient's age to complete this topic Procedures Procedure Name Priority Date/Time Associated Diagnosis Comments ECG 12-LEAD Routine 01/15/2025 9:28 AM EDT PSVT (paroxysmal supraventricular tachycardia) (CMS/HCC V24) TRANSTHORACIC ECHOCARDIOGRAM (TTE) COMPLETE Routine 12/19/2024 11:10 AM EDT PSVT (paroxysmal supraventricular tachycardia) (CMS/HCC V24) Syncope, unspecified syncope type Abnormal ECG RVH (right ventricular hypertrophy) ECG 12-LEAD Routine 12/18/2024 9:00 AM EDT PSVT (paroxysmal supraventricular tachycardia) (CMS/HCC V24) Syncope, unspecified syncope type Abnormal ECG PRIYA SCREENING DIGITAL Routine 10/12/2022 5:00 PM EST Encounter for screening mammogram for malignant neoplasm of breast from Last 3 Months or Most Recently Relevant to Health Maintenance Results * ECG 12 lead (01/15/2025 9:28 AM EDT) Only the most recent of2 resultswithin the time period is included. Ventricular Rate ECG 82 BPM GEMUSE Atrial Rate 82 BPM GEMUSE P-R Interval 152 ms GEMUSE QRS Duration 88 ms GEMUSE Q-T Interval 390 ms GEMUSE QTc 455 ms GEMUSE P Wave [place] 83 degrees GEMUSE R [place] -106 degrees GEMUSE T [place] 76 degrees GEMUSE ECG Interpretation Normal sinus rhythm Right superior axis deviation Pulmonary disease pattern Abnormal ECG When compared with ECG of 18-DEC-2024 09:00, Incomplete right bundle branch block is no longer Present GEMUSE 01/15/2025 8:35 AM EDT Narrative GEMUSE - 01/15/2025 9:28 AM EDT Normal sinus rhythm 82 bpm. ??Vertical axis. us Sandro Waller MD ECG ORDERABLES Final Result GEMUSE * (ABNORMAL) TRANSTHORACIC ECHOCARDIOGRAM (TTE) COMPLETE (12/19/2024 11:10 AM EDT) Left Atrium Minor [place] 4.0 cm CV PACS Left Atrium Major [place] 3.8 cm CV PACS LA Area Sys (A2C) 10 cm2 CV PACS LA Area Sys (A4C) 12 cm2 CV PACS LA Volume (BP) 23 mL CV PACS LA Size 3.0 cm CV PACS RA Area 7.9 cm2 CV PACS RA 2D Volume 14 mL CV PACS AV Mean Gradient 2 mmHg CV PACS AV Mean Gradient 2 mmHg CV PACS Ao VTI 17.9 cm CV PACS AV Peak Scott 1.0 m/s CV PACS AV Peak Gradient 4 mmHg CV PACS AV Area Continuity Equation 2.2 cm2 CV PACS AV Area Peak Velocity 2.1 cm2 CV PACS Aortic Arch 2.2 cm CV PACS Ascending Aorta 2.6 cm CV PACS Aortic Sinus Valsalva 3.5 cm CV PACS IVC Proximal 1.5 cm CV PACS IVSD 1.0(A) 0.6 - 0.9 cm CV PACS LVIDD 4.0 3.8 - 5.2 cm CV PACS LVIDS 2.8 2.2 - 3.5 cm CV PACS LVOT Diameter 1.9 cm CV PACS LVOT Mean Scott 0.4 m/s CV PACS LVOT Mean Grad 1 mmHg CV PACS LVOT Mean Grad 1 mmHg CV PACS LVOT Peak VTI 13.6 cm CV PACS LVOT Peak Scott 0.7 m/s CV PACS LVOT Peak Gradient 2 mmHg CV PACS LVPWD 1.0(A) 0.6 - 0.9 cm CV PACS MV E' Tissue Velocity Lateral 7 cm/s CV PACS MV E' Tissue Velocity Septal 6 cm/s CV PACS LVOT Area 2.8 cm2 CV PACS LVOT Stroke Volume 39 mL CV PACS MV Deceleration [place] 2.6 m/s2 CV PACS E Wave Deceleration Time 194 119 - 242 ms CV PACS MV PHT 57 ms CV PACS MV Peak A Scott 0.73 m/s CV PACS MV Peak E Scott 0.50 m/s CV PACS MV Mean Gradient 1 mmHg CV PACS MV Mean Gradient 1 mmHg CV PACS MV Mean Gradient 1 mmHg CV PACS MV Mean Gradient 1 mmHg CV PACS MV VTI 17.6 cm CV PACS Mitral Valve Max Velocity 0.7 m/s CV PACS MV Peak Gradient 2 mmHg CV PACS MV Area PHT 3.9 cm2 CV PACS MV Area Continuity Equation 2.2 cm2 CV PACS PV Acceleration Time 164 ms CV PACS PV Mean Gradient 1 mmHg CV PACS PV VTI 14.8 cm CV PACS PV Peak Velocity 0.7 m/s CV PACS PV Peak Gradient 2 mmHg CV PACS RV Diastolic Basal Dimension 2.5 2.5 - 4.1 cm CV PACS RV S' 8 cm/s CV PACS TAPSE 14 mm CV PACS E/E' Ratio Septal 8 CV PACS E/E' Ratio Averaged 8 CV PACS Relative Wall Thickness ratio 0.50 CV PACS LVOT:AV VTI Index 0.76 CV PACS FS 30 % CV PACS LV Mass 2D 127 g CV PACS MV VTI:LVOT VTI ratio 1.3 CV PACS LVOT flow 113 mL/s CV PACS AV Velocity Ratio 0.70 CV PACS E/A Ratio 0.7 CV PACS E/E' Ratio Lateral 7 CV PACS BSA 1.52 m2 CV PACS LA Volume Index (BP) 15 mL/m2 CV PACS LVIDD Index 2.63 cm/m2 CV PACS LVIDS Index 1.84 cm/m2 CV PACS LV Mass Index 2D 84 44 - 88 g/m2 CV PACS LVOT Stroke Index 26 mL/m2 CV PACS LA Dimension Index 2D 2.0 cm/m2 CV PACS RA 2D Volume Index 9(A) 15 - 27 mL/m2 CV PACS MICHA Index (VTI) 1.42 cm2/m2 CV PACS MICHA Index (Pk Scott) 1.38 cm2/m2 CV PACS Ascending Aorta Index 1.71 cm/m2 CV PACS Est. RA Pressure 3 mmHg CV PACS Anatomical Region Laterality Modality Ultrasound Narrative 12/19/2024 5:03 PM EDT Left ventricle cavity size is normal. There is mild concentric hypertrophy. Systolic function is normal with an ejection fraction of 55-60%. No hemodynamically significant valvular dysfunction There is no prior study available for comparison Left Ventricle Left ventricle cavity size is normal. There is mild concentric hypertrophy. Systolic function is normal with an ejection fraction of 55-60%. There are no regional LV wall motion abnormalities. Right Ventricle Right ventricle cavity appears normal. Left Atrium Left atrium cavity size is normal. There appears to be lipomatous hypertrophy of the interatrial septum. Right Atrium Right atrium cavity is normal. IVC/SVC Inferior vena cava structure is normal. RA pressures is estimated to be 3 mmHg (IVC diameter <21 mm and decreases >50% during inspiration). Mitral Valve The leaflets are mildly thickened. There is annular calcification. There is trace regurgitation. There is no evidence of mitral valve stenosis. Tricuspid Valve Tricuspid valve structure is normal. There is no significant regurgitation. Cannot assess RVSP. Aortic Valve The aortic valve is trileaflet. There is no regurgitation or stenosis. Pulmonic Valve There is trace pulmonic valve regurgitation. Ascending Aorta The aorta appears normal in size. Pericardium Pericardium appears normal. There is no pericardial effusion. Study Details Overall the study quality was adequate. us Sandro Lindsay MD CV ECHO PROCEDURES Final Resul t * PRIYA SCREENING DIGITAL (10/12/2022 5:00 PM EST) Anatomical Region Laterality Modality Mammography 10/12/2022 3:20 PM EST Narrative 10/12/2022 5:00 PM EST [facility] Diagnostic Imaging Department [address] [place] [id number] Patient: ??TEOFILO FRAZIER ?/Age/Sex: 1970 - 52 - F Unit#: ??[id number] ? Location/Status: ??SPDIMAM/REG CLI ? Mnemonic/Ordering Site: ??DIGSC/SPMAM Ordering Physician: ??ISMAEL SANDERS MD [facility] Screening Digital - 10/12/22 - 1635 EXAM: [facility] Screening Digital EXAM DATE AND TIME: 10/12/2022 4:35 PM HISTORY: ??Screening. COMPARISON: ??02/24/21, 08/02/19, 07/28/17 TECHNIQUE: CC and MLO views of both breasts were obtained using full field digital mammography. Bilateral digital breast tomosynthesis was performed in the MLO projection. Computer aided detection with SCADA Access 7.2-H and Musistic 3D 3.1 was employed. TISSUE DENSITY: c. The breasts are heterogeneously dense, which may obscure small masses. FINDINGS: No suspicious masses, grouped microcalcifications, or areas of architectural distortion are seen. Numerous circumscribed nodules are scattered throughout the lower outer quadrant of the left breast, showing no significant change. A benign rim calcification is noted in the left breast. The skin and vascularity are unremarkable. IMPRESSION: Stable mammographic appearance of the breasts. ??No evidence of malignancy is seen. A negative mammogram in the presence of a clinically suspicious palpable abnormality does not preclude the possibility of malignancy or alter the indications for biopsy. BI-RADS: ??Category 2: Benign RECOMMENDATION(S): 1: Routine screening mammogram BILATERAL in 1 year. [id number], [id number], 5524F Dictating Physician: ??ERUM MCGOVERN MD Electronically Signed by: ??ERUM MCGOVERN MD Dic Date/Time: ??10/12/221699 Sign date/Time: ??10/12/221699 Procedure Note Erum Mcgovern MD - 11/11/2023 [facility] Diagnostic Imaging Department [address] [place] [address] Patient: KATETEOFILOO.B./Age/Sex: 1970 - 52 - F Unit#: [id number] Location/Status: [facility] CLI Mnemonic/Ordering Site: [facility] Ordering Physician: ISMAEL SANDERS MD [facility] Screening Digital - 10/12/22 - 1635 EXAM: [facility] Screening Digital EXAM DATE AND TIME: 10/12/2022 4:35 PM HISTORY: Screening. COMPARISON: 02/24/21, 08/02/19, 07/28/17 TECHNIQUE: CC and MLO views of both breasts were obtained using fullfield digital mammography. Bilateral digital breast tomosynthesis was performedin the MLO projection. Computer aided detection with SCADA Access 7.2-H andMusistic 3D 3.1 was employed. TISSUE DENSITY: c. The breasts are heterogeneously dense, which mayobscure small masses. FINDINGS: No suspicious masses, grouped microcalcifications, or areas ofarchitectural distortion are seen. Numerous circumscribed nodules are scatteredthroughout the lower outer quadrant of the left breast, showing no significant change. A benign rim calcification is noted in the left breast. The skin and vascularity are unremarkable. IMPRESSION: Stable mammographic appearance of the breasts. No evidence of malignancyis seen. A negative mammogram in the presence of a clinically suspicious palpable abnormality does not preclude the possibility of malignancy or alter the indications for biopsy. BI-RADS: Category 2: Benign RECOMMENDATION(S): 1: Routine screening mammogram BILATERAL in 1 year. [address]1162, 23055 3342F, 7025F Dictating Physician: ERUM MCGOVERN MD Electronically Signed by: ERUM MCGOVERN MD Dic Date/Time: 10/12/221699 Sign date/Time: 10/12/221699 Ismael Flores MD IMG BI PROCEDURES Final Result from Last 3 Months or Most Recently Relevant to Health Maintenance Insurance [facility] Care Teams [employer] Relationship Specialty Start Date End Date Sandro Dowling MD [address] [place] [id number] PCP - General Internal Medicine 11/28/24
--- OUTSIDE RECORDS SUMMARY | 2025-01-17 16:28 | XMS_ITS | Continuity of Care Document ---
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 Hypokalemia(Final) - 01/14/25 Hypomagnesemia(Final) - 01/14/25 Palpitations(Final) - 01/14/25 Discharge Disposition: A-D/C Home Attending Physician: Manda Gordon MD Admitting Physician: Manda Gordon MD Referring Physician: Not on Staff, Referring MD Encounter Type: Disch ES Allergies, Adverse Reactions, Alerts Substance Criticality Severity Reaction Reaction Severity Status Imitrex Active Medrol Dosepak Activ e Immunizations Given and Recorded Vaccine Date Status Refusal Reason influenza virus vaccine, inactivated 06/30/23 Elias rded influenza virus vaccine, inactivated 06/24/22 Elias rded influenza virus vaccine, inactivated 06/25/21 Elias rded zoster vaccine, inactivated 05/03/23 Recorded tetanus/diphtheria/pertussis, acel(Tdap) 11/22/22 Recorded SARS-CoV-2 (COVID-19) mRNA-1273 vaccine 08/21/21 R ecorded SARS-CoV-2 (COVID-19) mRNA-1273 vaccine 11/20/20 R ecorded SARS-CoV-2 (COVID-19) mRNA-1275 vaccine 10/23/20 R ecorded Medications acetaminophen 325 mg oral tablet 650 mg, By Mouth, 3 times a day, PRN, Temperature Greater than 100.5, Refills 0, Maintenance, Pain , Mild, 12/30/23 9:27:00 AM EDT, Partial fill upon patient request if the prescription is for a schedule II opioid drug. Start Date: 12/30/23 Status: Ordered Repeat number: 1 acetaminophen-oxycodone 325 mg-10 mg oral tablet 1 tablet, By Mouth, Every 6 hours, PRN for pain, 0 Refills, Maintenance, 11/21/23 2:46:00 PM EST, Tablet, Partial fill upon patient request if the prescription is for a schedule II opioid drug. Start Date: 11/21/23 Status: Ordered Repeat number: 1 Albuterol (Eqv-Proventil HFA) 90 mcg/inh inhalation aerosol 2 puffs, Inhalation, Every 4 hours, PRN Wheezing/Shortness of Breath Start Date: 10/12/23 Status: Ordered Repeat number: 1 busPIRone 7.5 mg oral tablet 1 tablet = 7.5 mg, By Mouth, Daily at bedtime Start Date: 10/12/23 Status: Ordered Repeat number: 1 diclofenac sodium 75 mg oral delayed release tablet 1 tablet = 75 mg, By Mouth, 2 times a day, PRN for pain, # 20 tablet, 0 Refills, Maintenance, 12/26/23 9:11:00 AM EDT, Tablet, Partial fill upon patient request if the prescription is for a schedule II opioid drug. Start Date: 12/26/23 Status: Ordered Quantity: 20.0 Unit: tablet Repeat number: 1 duloxetine 30 mg oral enteric coated capsule 1 capsule = 30 mg, By Mouth, Daily at bedtime, takes with 60mg tablet for total of 90mg, 0 Refills,Maintenance, 10/12/23 9:39:00 PM EST, CR Capsule, Partial fill upon patient request if the prescription is for a schedule II opioid drug. Start Date: 10/12/23 Status: Ordered Repeat number: 1 duloxetine 60 mg oral enteric coated capsule 1 capsule = 60 mg, By Mouth, Daily at bedtime, takes with 30 mg tablet for total 90mg Start Date: 10/12/23 Status: Ordered Repeat number: 1 Estradiol = 1 mg, By Mouth, Daily, 0 Refills, Maintenance, 12/29/23 2:41:00 PM EDT, Partial fill upon patient request if the prescription is for a schedule II opioid drug. Start Date: 12/29/23 Status: Ordered Repeat number: 1 folic acid 1 mg oral tablet 1 mg, 1, tablet, By Mouth, Daily at bedtime, # 30 tablet, Refills 0, Maintenance, 10/12/23 7:22:00 PMEST, Partial fill upon patient request if the prescription is for a schedule II opioid drug. Start Date: 10/12/23 Status: Ordered Quantity: 30.0 Unit: tablet Repeat number: 1 gabapentin 100 mg oral capsule 300 mg, 3, capsule, By Mouth, Daily at bedtime, # 90 capsule, Refills 5, Maintenance, 10/12/23 7:22:00 PM EST, Partial fill upon patient request if the prescription is for a schedule II opioid drug. Start Date: 10/12/23 Status: Ordered Quantity: 90.0 Unit: capsule Repeat number: 1 Humira Pen 40 mg/0.8 mL subcutaneous solution = 40 mg, Subcutaneous Injection, Every 14 days, 0 Refills, Maintenance, 10/12/23 7:22:00 PM EST, Partial fill upon patient request if the prescription is for a schedule II opioid drug. Start Date: 10/12/23 Status: Ordered Repeat number: 1 levothyroxine 0.1 mg oral tablet 1 tablet = 100 mcg, By Mouth, Tuesday through Tuesday, TAKE 1 TABLET BY MOUTH 5 DAYS A WEEK Start Date: 10/12/23 Status: Ordered Repeat number: 1 magnesium oxide base 500 mg oral tablet 1 tablet = 500 mg, By Mouth, 2 times a day, 0 Refills, Maintenance, 10/12/23 9:53:00 PM EST, Tablet, Partial fill upon patient request if the prescription is for a schedule II opioid drug. Start Date: 10/12/23 Status: Ordered Repeat number: 1 meclizine 25 mg oral tablet 1 tablet = 25 mg, By Mouth, 3 times a day, PRN for dizziness, # 60 tablet, 0 Refills, Maintenance, 10/12/23 9:56:00 PM EST, Tablet, Partial fill upon patient request if the prescription is for a schedule II opioid drug. Start Date: 10/12/23 Status: Ordered Quantity: 60.0 Unit: tablet Repeat number: 1 methotrexate 2.5 mg oral tablet 8 tablet = 20 mg, By Mouth, Every Tuesday, # 4 tablet, 0 Refills, Maintenance, 10/12/23 7:22:00 PM EST, Tablet, Partial fill upon patient request if the prescription is for a schedule II opioid drug. Start Date: 10/12/23 Status: Ordered Quantity: 4.0 Unit: tablet Repeat number: 1 omeprazole 20 mg oral enteric coated capsule TAKE 1 CAPSULE BY MOUTH EVERY DAY Start Date: 12/26/23 Status: Ordered Repeat number: 1 potassium chloride 10 mEq oral capsule, extended release 2 capsule = 20 mEq, By Mouth, 2 times a day, TAKE 2 CAPSULES BY MOUTH TWICE DAILY WITH FOOD Start Date: 10/12/23 Status: Ordered Repeat number: 1 spironolactone 25 mg oral tablet 25 mg, 1, tablet, By Mouth, 2 times a day, # 60 tablet, Refills 0, Maintenance, 10/12/23 9:55:00 PM EST, Partial fill upon patient request if the prescription is for a schedule II opioid drug. Start Date: 10/12/23 Status: Ordered Quantity: 60.0 Unit: tablet Repeat number: 1 Problem List Condition Confirmation Course Effective Dates Status Health St atus Informant Hypokalemia Confirmed Active Results Radiology Reports * Exam Date Time Procedure Performing Provider Status 01/14/25 9:19 AM Chest 2 Views Frontal and Lat Hamida Gamboa; Auth (Verified) Notes: (Chest 2 Views Frontal and Lat) Reason For Exam: Shortness of Breath, Fever;Other: RESULT: Chest 2 Views Frontal and Lat Chest 2 Views Frontal and Lat Reason::; Shortness of Breath, Fever; Clinical Question(s): Pneumonia COMPARISON: 08/21/2024 FINDINGS: LINES AND TUBES: None. LUNGS AND PLEURA: Linear left fissural thickening/atelectasis unchanged since 2023. No focal consolidation. Normal pulmonary vascularity. No pleural effusion. No pneumothorax. HEART, MEDIASTINUM AND FELICITAS: Heart is normal in size. Normal mediastinal and hilar contour. BONES AND SOFT TISSUES: No acute abnormality. IMPRESSION: No acute cardiopulmonary abnormality. I have personally reviewed the images and I agree with this report. WSN: [id number] Ordering Physician: Sirena Warren Dictated By: Guille DO, Marian Dictated Date/Time: 01/14/25 9:39 am Reviewed By: Collins Lester MD, V Signed By: Collins Lester MD, V Signed Date/Time: 01/14/25 9:44 am Transcribed By: SISSY Transcribed Date/Time: 01/14/25 9:29 am Vital Signs Most recent to oldest [Reference Range]: 1 2 3 Height 161 cm (01/14/25 12: PM) 161 cm (01/14/25 8:08 AM) 161 cm (01/14/25 7:56 AM) Weight 51 kg (01/14/25: PM) 51 kg (01/14/25 8:08 AM) 51 kg (01/14/25 7:56 AM) Oxygen Saturation [94-100 %] 100 % (01/14/25: PM) 100 % (01/14/25 10:06 AM) 100 % (01/14/25 8:43 AM) Pulse Rate [55-90 bpm] 70 bpm (01/14/25: PM) 73 bpm (01/14/25 10:06 AM) 95 bpm *H* (01/14/25 8:43 AM) Body Mass Index [18.5-24.99 kg/m2] 19.68 kg/m2 (01/14/25 12: PM) 19.68 kg/m2 (01/14/25 7:56 AM) Blood Pressure [90-138/55-84 mm Hg] 91/64mm Hg (01/14/25 12:27 PM) 100/63mm Hg (01/14/25 10:06 AM) 99/74mm Hg (01/14/25 8:43 AM) Respiratory Rate [16-30 br/min] 13 br/min *L* (01/14/25 12: PM) 12 br/min *L* (01/14/25 10:06 AM) 16 br/min (01/14/25 8:43 AM) Temperature [96.8-100.4 DegF] 97.8 DegF (01/14/25 8:43 AM) 97.8 DegF (01/14/25 7:56 AM) Mode of Delivery (Oxygen) Room air (01/14/25 12:27 PM) Room air (01/14/25 10:06 AM) Room air (01/14/25 8:43 AM) Blood pressure sites Arm, left (01/14/25 10:06 AM) Arm, left (01/14/25 8:43 AM) Arm, left (01/14/25 7:56 AM) Temperature Route Oral (01/14/25 8:43 AM) Oral (01/14/25 7:56 AM) Dry Weight 51 kg (01/14/25 12:27 PM) 51 kg (01/14/25 8:08 AM) Weight Obtained Via Patient/family state d (01/14/25 8:08 AM) Social History Social History Type Response Smoking Status Former smoker, quit more than 30 days ago entered on: 08/06/24 Sex Sex Representation Female (finding) EKG study * Event Display: EKG Authored Date: [id number] Note * Sirena Warren MD: PERFORM Event Display: Patient Education Leaflets Authored Date: [id number] Heart Palpitations ?? [id number] Heart Palpitations Palpitations are the feeling that your heart is beating hard, fast, or irregular. Some describe it as pounding, flip-flopping in the chest, or skipped beats. Palpitations may occur in someone with or without heart disease. Heart-related causes: ??? Heart rhythm problem (arrhythmia). ??? Heart valve disease. ??? Disease of the heart muscle (cardiomyopathy). ??? Coronary artery disease. ??? High blood pressure. Nonheart-related causes: ??? Certain medicines, such as asthma inhalers and decongestants. ??? Some herbal supplements, energy drinks and pills, and weight loss pills. ??? Illegal stimulant drugs, such as cocaine, crank, methamphetamine, PCP, and ecstasy. ??? Caffeine, alcohol, and tobacco. ??? Health conditions, such as thyroid disease, anemia, anxiety, and panic disorder. Sometimes the cause can't be found. Home care Follow these home care tips: ??? Don't use too much caffeine, alcohol, or tobacco, or any stimulantdrugs. ??? Tell your health care provider about any prescription, [id number], vitamins, supplements, or herbal medicines you take. ?? Follow-up care ??? Follow up with your health care provider, or as advised. ?? Call 911 This is the fastest and safest way to get to the emergency department. The paramedics can also start treatment on the way to the hospital, if needed. Don't wait until your symptoms are severe to call 911. These are reasons to call 911: ??? Chest pain. ??? Shortness of breath. ??? Feeling lightheaded, faint, or dizzy, or losing consciousness. ??? Cain irregular heartbeat. ??? A rapid heartbeat that makes you uncomfortable. ??? A slower than usual heart rate along with symptoms. ??? Chest pain with weakness, dizziness,??heavy sweating, nausea, or vomiting. ??? Extreme drowsiness, confusion, or weakness. ??? Weakness of an arm or leg, or on one side of the face. ??? Trouble with speech or vision. ?? When to get medical advice Contact your health care provider or get medical care right away if you have palpitations that lastlonger than normal, or are different from your past palpitations. ?? Last Reviewed Date: 2024 00:00:00 ?? [id number] [employer]. All rights reserved. This information is not intended as a substitute for professional medical care. Always follow your healthcare professional's instructions. ?? Patient Care team information Care Team Personnel Name: Mica Allen RN Position: [facility] RN Member Role: Primary Care Nurse Name: Sandro Dowling MD Position: [facility] Physician - Primary Care Member Role: PCP Address: [address] [place] [address] Telecom: Name: Ayde Springer RN Position: [facility] RN Member Role: Primary Care Nurse Name: Bud Watts RN Position: [facility] RN Member Role: Primary Care Nurse Name: Karmen Gracia Position: [facility] Outreach Member Role: Lifetime Consulting Physician Name: Tanya Nagel RN Position: [facility] RN Member Role: Primary Care Nurse Name: Betty Daugherty RN Position: [facility] RN Member Role: Primary Care Nurse Name: Afshin Morgan MD Position: [facility] Renal MD Member Role: Lifetime Consulting Physician Address: [address] [facility] [address] [facility] [address] Telecom: Care Team Related Persons Name: BRIANA LOVE Name: PAIGE SHELTON Insurance Providers Guarantor name: TEOFILO LOVE Health Plan Information #: 1 Payer: [facility] [employer] Member Number: [id number] Policy Number: NA Group Number: [id number] Health Plan Information #: 2 Payer: [facility] [employer] Member Number: [id number] Policy Number: NA Group Number: [id number]
--- OUTSIDE RECORDS SUMMARY | 2025-01-17 16:28 | XMS_ITS | Clinical Summary ---
Author Organization [employer] Address [address] [place] [address] 7 [place] [address] Care Team Providers Care Skull Chopper Name Role Phone Unavailable Primary Care Provider Unavailabl e Allergies Active Allergy Reactions Criticality Noted Date Comments Methylprednisolone 02/07/2024 Sumatriptan 02/07/2024 Medications adalimumab (Humira) 10 MG/0.2ML Prefilled Syringe Kit prefilled syringe Active amitriptyline (Elavil) 10 MG tablet Take by mouth. Activ e DULoxetine (Cymbalta) [address] capsule Take by mouth. A ctive estradiol (Estrace) 0.1 MG/GM vaginal cream Insert into the vagina. Active levothyroxine (Levoxyl) 25 MCG tablet Active magnesium gluconate 550 MG tablet Active Potassium 99 MG tablet Active albuterol 108 (90 Base) MCG/ACT inhaler 2 puffs every 4 (four) hours if needed. 3 Active acetaminophen (Tylenol) 500 MG tablet Take 500 mg by mouth every 6 (six) hours if needed. 1 Active busPIRone (Buspar) 10 MG tablet Take 10 mg by mouth 2 times daily. 4 Active Diclofenac Sodium 1 % gel APPLY 2 TO 3 GRAMS TOPICALLY TO THE AFFECTED AREA THREE TIMES DAILY NEEDED FOR PAIN 4 Active diclofenac (Voltaren) 75 MG EC tablet Take 75 mg by mouth 2 times daily. 3 Active folic acid (Folvite) 1 MG tablet Take 1,000 mcg by mouth Once per day. Active gabapentin (Neurontin) 100 MG capsule TAKE 3 CAPSULES BY MOUTH DAILY AT BEDTIME 4 Active magnesium oxide (Mag-Ox) 400 (240 Mg) MG tablet Take 400 mg by mouth if needed in the morning and at bedtime. 4 Active methotrexate 2.5 MG tablet TAKE 8 TABLETS BY MOUTH ONCE PER WEEK DIRECTED Active mirtazapine (Remeron) 7.5 MG tablet Take 7.5 mg by mouth at bedtime. 4 Active omeprazole (PriLOSEC) [address] capsule Take 20 mg by mouth Once per day. 4 Active potassium chloride ER (Micro-K) 10 MEQ ER capsule TAKE 2 CAPSULES BY MOUTH TWICE DAILY WITH FOOD 3 Active spironolactone (Aldactone) 25 MG tablet Take 25 mg by mouth 2 times daily. Active Humira, 2 Pen, 40 MG/0.8ML Pen-injector Kit pen-injector Comments: Filled Date: Jan 29 2015 12:00AM Duration: 5 Active DULoxetine (Cymbalta) [address] capsule Take 30 mg by mouth Once per day. Active DULoxetine (Cymbalta) [address] capsule Take 60 mg by mouth Once per day. 4 Active estradiol (Estrace) 1 MG tablet Take 1 mg by mouth Once per day. 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 Hypokalemia 05/08/2021 Immunizations Name Administration Dates Next Due Influenza Injectable Quadriv alant Preservative Free IIV4 MDCK 06/24/2022,06/25/2021 Influenza, seasonal, injectable, preservative fr ee 06/21/2024 Tdap 11/22/2022 Zoster, Recombinant 05/03/2023 Social History Tobacco Use Types Packs/Day Years Used Date Smoking Tobacco: Former Cigarettes Smokeless Tobacco: Never Tobacco Cessation:Counseling Given: Not Answered Alcohol Use Standard Drinks/Week Comments Yes 0 (1 standard drink = 0.6 oz pur e alcohol) Comments Unknown Sex and Gender Information Value Date Recorded Sex Assigned at Female 08/09/2022 10:35 AM EDT Legal Sex Female 10:35 AM EDT Gender Identity Female 08/09/2022 10:35 AM EDT Sexual Orientation Straight 08/09/2022 10 :35 AM EDT Last Filed Vital Signs Vital Sign Reading Time Taken Comments Blood Pressure 92/40 03/14/2024 3:47 PM EDT Pulse 69 12/02/2022 3:23 PM EST Temperature - - Respiratory Rate - - Oxygen Saturation - - Inhaled Oxygen Concentration - - Weight - - Height - - Body Mass Index - - Plan of Treatment Health Maintenance Due Date Last Done Comments CT Colonography 1969 Colonoscopy 1969 Colorectal Cancer Screening 1969 Dental Oral Exam 1969 Dental Prophylaxis 1969 Dental X-Ray: Full Mouth 1969 Depression Screening 1969 FIT DNA/Cologuard 1969 FIT 1969 FOBT 1969 HIV Screening 1969 SDOH Screening 1969 Sigmoidoscopy 1969 Alcohol/Substance Use Screening 1981 Hepatitis C Screening 1987 Hepatitis B Vaccines (1 of 3 - 19+ 3-dose series) 1988 Pap Smear 1990 Cervical Cancer Screening 1999 HPV/Cotest 1999 Mammogram 2009 Pneumococcal Vaccine: 50+ Years (1 of 1 - PCV) 2019 Zoster Vaccines (2 of 2) 06/28/2023 05/03/2023 COVID-19 Vaccine ( - 2023- season) 2024 08/21/2021, 11/20/2020, 10/23/2020 Dental X-Ray: Bitewings 07/05/2025 07/04/2024 Tobacco Screening 07/30/2025 07/30/2024 DTaP/Tdap/Td Vaccines (2 - Td or Tdap) 11/22/2032 11/22/2022 RSV Patients and Patients Aged 60 years or older (1 - 1-dose 75+ series) 2044 Influenza Vaccine Completed 06/21/2024, , 06/30/2023, Additional history exists HIB Vaccines Aged Out [...] patient's age to complete this topic Meningococcal Vaccine Aged Out No margaret genna eligible based on patient's age to complete this topic RSV under 20 months Aged Out No longe r eligible based on patient's age to complete this topic Rotavirus Vaccines Aged Out No longer eligible based on patient's age to complete this topic Procedures Procedure Name Priority Date/Time Associated Diagnosis Comments BITEWING - SINGLE RADIOGRAPHIC IMAGE Routine 07/04/2024 10:30 AM EDT from Last 3 Months or Most Recently Relevant to Health Maintenance [place] [place] [address] , [facility] [address] [place] [address] DENTAL - [facility]
[2025-01-17 17:39] LABS: Anion Gap 17 (12-20); Blood Urea Nitrogen 12 mg/dL (9-16); Calcium 9.8 mg/dL (8.4-10.2); Carbon Dioxide 40 mmol/L (22-29); Chloride 88 mmol/L (96-108); Estimated Glomerular Filt Rate > 60; Glucose Random 96 mg/dL (60-115); Potassium 3.3 mmol/L (3.3-5.1); Sodium 142 mmol/L (135-145)
== END 2025-01-17 13:38 | disposition home or self-care (01) ==
LOC: HO.HHCL 13:37
PROVIDERS: Visit Provider Internal Medicine Cardiovascular Disease
DX: R55 Syncope and collapse (principal)
CPT/HCPCS: 36415; 80048; 85025; 85610

== ENCOUNTER 2025-01-23 14:50 | Outpatient (REF) | payer OTHER, SELFPAY ==
[2025-01-23 16:26] LABS: Anion Gap 12 (12-20); Blood Urea Nitrogen 9 mg/dL (9-16); Calcium 9.1 mg/dL (8.4-10.2); Carbon Dioxide 35 mmol/L (22-29); Chloride 97 mmol/L (96-108); Estimated Glomerular Filt Rate > 60; Glucose Random 135 mg/dL (60-115); Potassium 4.1 mmol/L (3.3-5.1); Sodium 140 mmol/L (135-145)
--- OUTSIDE RECORDS SUMMARY | 2025-01-23 17:33 | XMS_ITS | Clinical Summary ---
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
--- OUTSIDE RECORDS SUMMARY | 2025-01-23 17:33 | XMS_ITS | Clinical Summary ---
Author Organization [facility] Address [address] [address] Care Team Providers Care Natural Fabricator Name Role Phone Sandro Dowling MD Primary Care Provider [phone] Medications Acetaminophen Extra Strength 500 MG tablet [...] Colonoscopy 2018 Colorectal Cancer Screening: Sigmoidoscopy 2018 Pneumococcal Vaccine: 50+ Ye ars (1 of 1 - PCV) 2019 Influenza Vaccine Completed 06/21/2024, , 06/25/2021 Insurance [facility] Care Teams Natural Fabricator Relationship Specialty Start Date End Date Sandro Dowling MD [address] [address] PCP - General 10/20/20
--- OUTSIDE RECORDS SUMMARY | 2025-01-23 17:33 | XMS_ITS | Encounter Summary ---
Author Organization [employer] Address [address] [facility] [address] [place] [address] Care Team Providers Care Entry Level Web Developer Name Role Phone Unavailable Primary Care Provider Unavailabl e Encounter Details Date Type Department Care Team (Late st Contact Info) Description 12/10/2022 Abstract [facility] ADULT DENTAL [address] [place] [address] Yogesh Salvador DMD Social History Tobacco Use [...]
--- OUTSIDE RECORDS SUMMARY | 2025-01-23 17:33 | XMS_ITS | Encounter Summary ---
Author Organization [employer] Address [address] [place] [address] [place] [address] Care Team Providers Care Principal Data Architect Name Role Phone Unavailable Primary Care Provider Unavailabl e Reason for Visit * Reason Onset Date Comments Results 01/18/2025 Call came into [facility] Encounter Details Date Type Department Care Team ([facility] st Contact Info) Description 01/18/2025 Telephone [facility] MEDICINE [address] [place] [address] Pcp [place] Unassigned Results (Call came into [facility]) Social History Tobacco Use Types Packs/Day Years [...] Orientation Straight 08/09/2022 10 :35 AM EDT documented as of this encounter Miscellaneous Notes * Telephone Encounter - Adrienne Rao - 01/18/2025 11:[address] Yonatan Dela Cruz at [facility] received a call from Adelaida @ [facility] about a critical result on Chhaya Frazier (: 1970) on elevated Bicarbonate level of 40. However, the lab was ordered by Dr. Sandro Shukla who I believe is from [place]. I advised Adelaida to contact that office. Message forwarded to [employer] Worker Apprentice to document on non-patient that the caller was instructed to contact the right office. documented in this encounter Plan of Treatment Not on file documented as of this encounter Visit Diagnoses Not on filedocumented in this encounter
--- OUTSIDE RECORDS SUMMARY | 2025-01-23 17:33 | XMS_ITS | Encounter Summary ---
Author Organization [facility] Address [address] [place] [address] Care Team Providers Care Production Broacher Name Role Phone Sandro Dowling MD Primary Care Provider [phone] Reason for Visit * Reason Onset Date Comments Labs Only 01/17/2025 Encounter Details Date Type Department Care Team (Late st Contact Info) Description 01/17/2025 Telephone [facility] - [facility] [address] [facility] [address] [place] [phone] Derrell Robles MD [address] [facility] [address] [place] [address] Labs Only Social History Tobacco Use Types Packs/Day Years [...] on file documented as of this encounter Progress Notes * Meagan Ruiz MA - 01/23/2025 2:41 PM EDT Images from the original note were not included. Lab order faxed 2nd time * Ubaldo Rubin - 01/23/2025 1:50 PM EDT Patient called today because she has not received the lab order to [facility] as below. Please resend the order to [phone] attn: Christine. If there are any questions she can be reachedat [phone]. * Meagan Ruiz MA - 01/18/2025 2:59 PM EDT Images from the original note were not included. Patient made aware . Lab order faxed to [phone]. 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 * Elisa Macias NP - 01/18/2025 2:19 PM EDT K+ 3.3, HCO3 40 ( 10/2024 K+ 3.9, HCO3 40 ) Have her take an extra K+ for two days and repeat BMP on Tuesday of next week * Elisa Macias NP - 01/18/2025 11:41 AM EDT Has the fax been received? Patricia - please request full lab report from [facility] * Ubaldo Rubin - 01/18/2025 9:04 AM EDT Patient called today wondering if it was enough for her to fax over her lab results as she was ableto print them from her patient portal; or do we need [facility] to fax them over? Please reach out to her at [phone] to discuss. I gave her the [facility] clinical fax to send them to if that is sufficient. * Elisa Macias NP - 01/18/2025 8:18 AM EDT Spoke with patient - the lab have not been received from [place] - she will facilitate She feels well, admits she forgot her K+ supplements yesterday - she will also be sure her PCP has a copy * Derrell Robles MD - 01/17/2025 6:09 PM EDT Lab in [place] called with bicarb of 40. The BMP had some low K+ but was otherwise unremarkable with normal BUN creatinine and sodium, on read back. 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 Would give her a ring see if there has been a change to her medications or diet recently. documented in this encounter Plan of Treatment Upcoming Encounters Date Type Department Care Team (Latest Contact Info) Description 01/25/2025 10:00 AM EDT Hospital Encounter [facility] Cardiac Paramedic [address] [place] [phone] Sandro Waller MD [address] [address] PSVT (paroxysmal supraventricular tachycardia) ([facility] V24); Syncope, unspecified syncope type 01/25/2025 10:00 AM EDT - 01/25/2025 10:30 AM EDT Surgery [facility] Cardiac Paramedic [address] [place] [phone] Sandro Waller MD [address] [address] Loop recorder insertion [06202 (CPT??)] Scheduled Orders Name Type Priority Associated Diagnoses Orde r Schedule Basic metabolic panel Lab Routine PSVT (paroxysmal supraventricular tachycardia) ([facility]/HCC V24) 1 Occurrences starting 01/18/2025 until 01/18/2026 documented as of this encounter Visit Diagnoses Diagnosis PSVT (paroxysmal supraventricular tachycardia) ([facility] V24) Paroxysmal supraventricular tachycardia Syncope, unspecified syncope type PSVT (paroxysmal supraventricular tachycardia) ([facility] V24)- Primary Paroxysmal supraventricular tachycardia PSVT (paroxysmal supraventricular tachycardia) ([facility] V24) Paroxysmal supraventricular tachycardia Syncope, unspecified syncope type documented in this encounter Care Teams Production Broacher Relationship Specialty Start Date End Date Sandro Dowling MD [address] [place] [address] PCP - General Internal Medicine 11/28/24 documented as of this encounter
--- OUTSIDE RECORDS SUMMARY | 2025-01-23 17:33 | XMS_ITS | Clinical Summary ---
Author Organization [facility] [employer] Address [address] [place] [address] Phone Care Team Providers Care Computational Linguist Name Role Phone Janine Dowling MD Primary Care Provider [phone] Allergies Active Allergy Reactions Criticality Noted Date [...] Encounters Date Type Department Care Team Description 01/17/[address] [facility] [address] [place] [address] Derrell Robles MD Labs Only 01/15/2025 8:[address] [facility] [address] [place] [address] Janine Waller MD PSVT (paroxysmal supraventricular tachycardia) (CMS/HCC V24) (Primary Dx) 12/26/[address] [facility] [address] [place] [address] Janine Waller MD Procedure ( ILR Implant 4.18.25) 12/19/2024 10:30 AM EDT Ancillary Procedure [facility] [address] [place] [address] PSVT (paroxysmal supraventricular tachycardia) ([facility] V24); Syncope, unspecified syncope type; Abnormal ECG; RVH (right ventricular hypertrophy) 12/18/2024 8:50 AM EDT Office Visit [facility] Cardiology [facility] [address] [place] [address] Janine Lindsay MD PSVT (paroxysmal supraventricular tachycardia) ([facility] V24) (Primary Dx); Syncope, unspecified syncope type; Abnormal ECG; RVH (right ventricular hypertrophy) 12/07/2024 Telephone [facility] [address] [facility] [address] [place] [address] Janine Dowling MD 11/16/2024 Telephone [facility] [address] [facility] [address] [place] [address] Janine Dowling MD Referral (Received routine paper referral - ) from Last 3 Months Medical History Medical History Date Comments Rheumatoid arthritis ([facility] V24, [facility] V28) Hypothyroidism Sjogren's syndrome ([facility] V24) Family History Medical History Relation Name [...] Description 01/25/2025 10:00 AM EDT Hospital Encounter [facility] Cardiac Distribution Technician [address] [place] [phone] Janine Waller MD [address] [address] PSVT (paroxysmal supraventricular tachycardia) (CMS/HCC V24); Syncope, unspecified syncope type 01/25/2025 10:00 AM EDT - 01/25/2025 10:30 AM EDT Surgery [facility] Cardiac Distribution Technician [address] [place] [phone] Janine Waller MD [address] [address] Loop recorder insertion [61825 (CPT??)] Health Maintenance Due Date Last Done [...] Procedure Name Priority Date/Time Associated Diagnosis Comments EXTERNAL CLINICAL LAB Routine 01/17/2025 1:45 PM EDT ECG 12-LEAD Routine 01/15/2025 9:28 AM EDT PSVT (paroxysmal supraventricular tachycardia) (CMS/HCC V24) TRANSTHORACIC ECHOCARDIOGRAM (TTE) COMPLETE Routine 12/19/2024 11:10 AM EDT PSVT (paroxysmal supraventricular tachycardia) (CMS/HCC V24) Syncope, unspecified syncope type Abnormal ECG RVH (right ventricular hypertrophy) ECG 12-LEAD Routine 12/18/2024 9:00 AM EDT PSVT (paroxysmal supraventricular tachycardia) (CMS/HCC V24) Syncope, unspecified syncope type Abnormal ECG WISAM SCREENING DIGITAL Routine 10/12/2022 5:00 PM EST Encounter for screening mammogram for malignant neoplasm of breast from Last 3 Months or Most Recently Relevant to Health Maintenance Results * External clinical lab (01/17/2025 1:45 PM EDT) us Historical Provider LAB BLOOD ORDERABLES Edit ed Result - Final * ECG 12 lead (01/15/2025 9:28 AM EDT) Only the most recent of2 resultswithin the time period is included. Ventricular Rate ECG 82 BPM GEMUSE Atrial Rate 82 BPM GEMUSE P-R Interval 152 ms GEMUSE QRS Duration 88 ms GEMUSE Q-T Interval 390 ms GEMUSE QTc 455 ms GEMUSE P Wave [place] 83 degrees GEMUSE R [place] -106 degrees GEMUSE T [place] 76 degrees GEMUSE ECG Interpretation Normal sinus rhythm Right superior axis deviation Pulmonary disease pattern Abnormal ECG When compared with ECG of 18-DEC-2024 09:00, Incomplete right bundle branch block is no longer Present Confirmed by Sid WALLER, JANINE ([id number]) on 01/21/2025 3:36:38 PM GEMUSE 01/15/2025 8:35 AM EDT 01/21/2025 3:36 PM EDT Janine Waller MD ECG ORDERABLES Edited Result - Final GEMUSE * (ABNORMAL) TRANSTHORACIC ECHOCARDIOGRAM (TTE) COMPLETE (12/19/2024 11:10 AM EDT) Pathologist [facility] Left Atrium Minor [place] 4.0 cm CV PACS Left Atrium Major [place] 3.8 cm CV PACS LA Area Sys [...] Volume 39 mL CV PACS MV Deceleration [place] 2.6 m/s2 CV PACS E Wave Deceleration [...] Overall the study quality was adequate. us Janine Lindsay MD CV ECHO PROCEDURES Final Resul t * WISAM SCREENING DIGITAL (10/12/2022 5:00 PM EST) Anatomical Region Laterality Modality Mammography 10/12/2022 3:20 PM EST Narrative 10/12/2022 5:00 PM EST [facility] Diagnostic Imaging Department [address] [place] [address] Patient: ??CHHAYA FRAZIER ?/Age/Sex: 1970 - 52 - F Unit#: ??[id number] ? Location/Status: ??SPDIMAM/REG CLI ? Mnemonic/Ordering Site: ??DIGSC/SPMAM Ordering Physician: ??CHELSEY SANDERS MD [facility] Screening Digital - 10/12/22 - 1635 EXAM: [place] Screening Digital EXAM DATE AND TIME: 10/12/2022 4:35 PM HISTORY: ??Screening. COMPARISON: ??02/24/21, 08/02/19, 07/28/17 TECHNIQUE: CC and MLO views of both breasts were obtained using full field digital mammography. Bilateral digital breast tomosynthesis was performed in the MLO projection. Computer aided detection with [employer] 7.2-H and [employer] 3D 3.1 was employed. TISSUE DENSITY: c. [...] Routine screening mammogram BILATERAL in 1 year. [address]3341, [address]12 3342F, 7025F Dictating Physician: ??SIA MCGOVERN MD Electronically Signed by: ??SIA MCGOVERN MD Dic Date/Time: ??10/12/221699 Sign date/Time: ??10/12/221699 Procedure Note Sia Mcgovern MD - 11/11/2023 [facility] Diagnostic Imaging Department [address] [place] [address] Patient: CHHAYA FRAZIER Nika /Age/Sex: 1970 - 52 - F Unit#: [id number] Location/Status: [facility] CLI Mnemonic/Ordering Site: [facility] Ordering Physician: CHELSEY SANDERS MD [facility] Screening Digital - 10/12/22 - 1635 EXAM: [facility] Screening Digital EXAM DATE AND TIME: 10/12/2022 4:35 PM HISTORY: Screening. COMPARISON: 02/24/21, 08/02/19, 07/28/17 TECHNIQUE: CC and MLO views of both breasts were obtained using fullfield digital mammography. Bilateral digital breast tomosynthesis was performedin the MLO projection. Computer aided detection with iCAD PowerLook 7.2-H and[employer]u [employer] 3D 3.1 was employed. TISSUE DENSITY: c. [...] Routine screening mammogram BILATERAL in 1 year. 84570, [address]6522 3342F, 7025F Dictating Physician: SIA MCGOVERN MD Electronically Signed by: SIA MCGOVERN MD Dic Date/Time: 10/12/221699 Sign date/Time: 10/12/221699 Chelsey Flores MD IMG BI PROCEDURES Final Result from Last 3 Months or Most Recently Relevant to Health Maintenance Insurance [facility] Care Teams Computational Linguist Relationship Specialty Start Date End Date Janine Dowling MD [address] [place] [address] PCP - General Internal Medicine 11/28/24
== END 2025-01-23 14:51 | disposition home or self-care (01) ==
LOC: HO.HHCL 14:50
PROVIDERS: Visit Provider Nurse Practitioner Acute Care
DX: I47.10 Supraventricular tachycardia, unspecified (principal)
CPT/HCPCS: 36415; 80048

== ENCOUNTER 2025-05-09 13:04 | Outpatient (REF) | payer OTHER, SELFPAY ==
--- OUTSIDE RECORDS SUMMARY | 2025-05-09 13:18 | XMS_ITS | Clinical Summary ---
Author Organization [facility] Address [address] [address] Care Team Providers Care Director Of Accreditation Name Role Phone Sandro Dowling MD Primary Care Provider [phone] Medications Acetaminophen Extra Strength 500 MG tablet [...] of 1 - PCV) 2019 Influenza Vaccine (#1) 2025 4, 06/24/2022, 06/25/2021 Insurance [facility] Care Teams Director Of Accreditation Relationship Specialty Start Date End Date Sandro Dowling MD [address] [address] PCP - General 10/20/20
--- OUTSIDE RECORDS SUMMARY | 2025-05-09 13:18 | XMS_ITS | Clinical Summary ---
Author Organization [employer] Address [address] [place] [address] [address] [place] [address] Care Team Providers Care Jumpbasting Canvas Baster Name Role Phone Unavailable Primary Care Provider [...] BY MOUTH 5 DAYS A WEEK Active amoxicillin-cla vulanate (Augmentin) 875-125 MG tablet Take 1 tablet by mouth 2 times daily for 7 days. 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 ADULT DENTAL [address] [place] [address] Kayley Medina DMD 02/27/2025 2:30 PM EDT Office Visit [facility] ADULT DENTAL [address] [place] [address] Kayley Medina DMD 02/26/2025 Telephone [facility] ADULT DENTAL [address] [place] [address] Kayley Medina DMD 02/25/2025 8:00 AM EDT Office Visit [facility] ADULT DENTAL [address] [place] [address] Kayley Medina DMD 02/22/2025 11:00 AM EDT Office Visit [facility] ADULT DENTAL [address] [place] [address] Mena Downs, DDS Dental abscess (Primary Dx); History of revision of root canal treatment of premolar tooth from Last 3 Months Immunizations Immunization Administration Dates Next Due Influenza Injectable Quadriv [...] Mass Index - - Plan of Treatment Upcoming Encounters Date Type Department Care Team (Late st Contact Info) Description 05/15/2025 3:00 PM EDT Office Visit [facility] ADULT DENTAL [address] [place] [address] Sterling Gomez [address] [place] [address] Health Maintenance Due Date Last Done Comments CT Colonography 1970 Colonoscopy 1970 Colorectal Cancer Screening 1970 Dental Oral Exam 1970 Dental Prophylaxis 1970 Dental X-Ray: Full Mouth 1969 Depression Screening 1970 FIT DNA/Cologuard 1969 FIT 1970 FOBT 1970 HIV Screening 1970 SDOH Screening 1970 Sigmoidoscopy 1969 Disability Screening 1969 Alcohol/Substance Use Screening 1981 Hepatitis C Screening 1987 Hepatitis B Vaccines (1 of 3 - 19+ 3-dose series) 1988 Pap Smear 1990 Cervical Cancer Screening 1999 HPV/Cotest 1999 Mammogram 2009 Pneumococcal Vaccine: 50+ Years (1 of 1 - PCV) 2019 Zoster Vaccines (2 of 2) 06/28/2023 05/03/2023 COVID-19 Vaccine (4 - 2023- season) 2024 08/21/2021, 11/20/2020, 10/23/2020 Influenza Vaccine (#1) 2025 , 06/30/2023, 06/30/2023, Additional history exists Dental X-Ray: Bitewings 07/05/2025 07/04/2024 Tobacco Screening 02/27/2026 02/27/2025 DTaP/Tdap/Td Vaccines (2 - Td or Tdap) 11/22/2032 11/22/2022 RSV Patients and Patients Aged 60 years or older (1 - 1-dose 75+ series) 2044 HIB Vaccines Aged Out No longer eligi [...] Procedure Name Priority Date/Time Associated Diagnosis Comments CONSULTATION - DIAGNOSTIC SERVICE PROVIDED BY DENTIST OR PHYSICIAN OTHER THAN REQUESTING DENTIST OR PHYSICIAN Routine 02/27/2025 2:30 PM EDT 5 PALLIATIVE (EMERGENCY) TREATMENT OF DENTAL PAIN - MINOR PROCEDURE Routine 02/25/2025 8:00 AM EDT CONSULTATION - DIAGNOSTIC SERVICE PROVIDED BY DENTIST OR PHYSICIAN OTHER THAN REQUESTING DENTIST OR PHYSICIAN Routine 02/25/2025 8:00 AM EDT INTRAORAL - PERIAPICAL FIRST RADIOGRAPHIC IMAGE Routine 02/22/2025 11:00 AM EDT Dental abscess History of revision of root canal treatment of premolar tooth LIMITED ORAL EVALUATION - PROBLEM FOCUSED Routine 02/22/2025 11:00 AM EDT Dental abscess History of revision of root canal treatment of premolar tooth BITEWING - SINGLE RADIOGRAPHIC IMAGE Routine 07/04/2024 10:30 AM EDT from Last 3 Months or Most Recently Relevant to Health Maintenance Insurance , [address] [address] DENTAL - [facility]
--- OUTSIDE RECORDS SUMMARY | 2025-05-09 13:18 | XMS_ITS | Clinical Summary ---
Author Organization [facility] Hometapper Address [address] [place] [address] Phone Care Team Providers Care Crane Mechanic Name Role Phone Sandro Dowling MD Primary Care Provider [phone] Allergies Active Allergy Reactions Criticality Noted Date [...] (six) hours if needed for severe pain. Active omeprazole (PriLOSEC) [address] capsule [...] Active Problems Problem Noted Date Diagnosed Date RVH (right ventricular hypertrophy) 04/01/2025 Assessment & Plan (04/01/2025 6:19 PM EDT): Recent echo did not report this. No evidence of PPH or PE. Gitelman syndrome 04/01/2025 Assessment & Plan (04/01/2025 6:19 PM EDT): Well managed with present medical regimen and hydration/salt ingestion. Continue meds. Consider florinef for symptomatic breakthrough. Palpitations 01/08/2025 Syncope 12/17/2024 Assessment & Plan (04/01/2025 6:19 PM EDT): No recent recurrence though lightheadedness appears to correlate with hypotension despite attempts at adequate hydration. ILR will be followed closely. I recommend increased salt and pt may carry salt packets or pretzel stix in her purse to spear off symptoms on a prn basis. If hypotension becomes more symptomatic, consider FLORINEF. Assessment & Plan (12/20/2024 9:07 AM EDT): [...] tachycardia) (CMS/HCC V24) 12/14/2024 Assessment & Plan (04/01/2025 6:19 PM EDT): No recent evidence of recurrence. Continue to follow INR in device clinic. Assessment & Plan (12/20/2024 9:07 AM EDT): [...] Encounters Date Type Department Care Team Description 05/04/2025 2:20 AM EDT Ancillary Procedure [facility] [address] [place] [address] 04/08/2025 11:30 AM EDT Ancillary Procedure [facility] [address] [place] [address] 04/01/2025 8:50 AM EDT Office Visit [address] [place] [address] Sandro Lindsay MD Syncope, unspecified syncope type (Primary Dx); PSVT (paroxysmal supraventricular tachycardia) ([facility] V24); RVH (right ventricular hypertrophy); Gitelman syndrome 03/06/2025 Telephone [facility] [address] [place] [address] Sandro Waller MD Chest Pain 03/01/2025 2:15 PM EDT Ancillary Procedure [facility] [address] [place] [address] 02/27/2025 Telephone [facility] [address] [place] [address] Sandro Waller MD 02/25/2025 Telephone [facility] [address] [place] [address] Sandro Waller MD from Last 3 Months Medical History Medical History Date Comments Rheumatoid arthritis (CMS/HCC V24, CMS/HCC V28) Hypothyroidism Sjogren's syndrome (CMS/HCC V24) Family History Medical History Relation Name [...] Value Date Recorded Sex Assigned at Female 01/25/2025 8:33 AM EDT Legal Sex Female 10:14 AM EST Gender Identity Female 01/25/2025 8:33 AM EDT Sexual Orientation Straight 01/25/2025 8: 33 AM EDT Obstetrics History Last Filed Vital Signs Vital Sign Reading Time Taken Comments Blood Pressure 80/40 04/01/2025 8:39 AM EDT Pulse 73 04/01/2025 8:39 AM EDT Temperature 36.3 C (97.4 F) 01/25/2025 8:53 AM EDT Respiratory Rate 16 01/25/2025 8:53 AM EDT Oxygen Saturation 99% 04/01/2025 8:39 AM EDT Inhaled Oxygen Concentration - - Weight 51.7 kg (114 lb) 04/01/2025 8:39 AM EDT Height 161.9 cm (5' 3.75 ) 04/01/2025 8:39 AM ED T Body Mass Index 19.72 04/01/2025 8:39 AM EDT Plan of Treatment Health Maintenance Due Date Last Done Comments Hepatitis B Vaccines (1 of 3 - 19+ 3-dose series) 1988 Cervical Cancer Screening: Pap Smear 1990 Pneumococcal Vaccine: 50+ Years (1 of 1 - PCV) 2019 Colorectal Cancer Screening: Colonoscopy 09/07/2022 HIV Screening 09/07/2022 Hepatitis C Screening 09/07/2022 Social Influencers of Health Screening 09/07/2022 Zoster Vaccines (2 of 2) 06/28/2023 05/03/2023 COVID-19 Vaccine ( - season) 2024 08/21/2021, 11/20/2020, 10/23/2020 Depression Screening 10/10/2024 Breast Cancer Screening 10/12/2024 10/12/19, 02/24/2021, 08/03/2019 Influenza Vaccine (#1) 2025 , 06/30/2023, 06/24/2022, Additional history exists DTaP,Tdap,and Td Vaccines (2 - Td or Tdap) 11/22/2032 11/22/2022 HIB Vaccines Aged Out No longer eligi [...] on patient's age to complete this topic Medical Devices Implanted Type Area Church Official Device Identifier Shelf Expiration Date Model / Serial / Lot Monitor Cardiac Insert Lux Dx Ii+ - [id number] - [id number] Implanted:Qty: 1 on 01/25/2025 by Sandro Waller MD at [facility] Cardiac Loop Recorder Left: Chest [employer] MGMT [id number] 05/30/2026 [id number] / [id number] / Procedures Procedure Name Priority Date/Time Associated Diagnosis Comments CARDIAC DEVICE CHECK- REMOTE- MURJ Routine 05/04/2025 2:18 AM EDT CARDIAC DEVICE CHECK- REMOTE- MURJ Routine 04/08/2025 11:27 AM EDT CARDIAC DEVICE CHECK- REMOTE- MURJ Routine 03/01/2025 2:12 PM EDT PRIYA SCREENING DIGITAL Routine 10/12/2022 5:00 PM EST Encounter for screening mammogram for malignant neoplasm of breast from Last 3 Months or Most Recently Relevant to Health Maintenance Results * Cardiac device check - Remote- MURJ (05/04/2025 2:18 AM EDT) Only the most recent of3 resultswithin the time period is included. Date Time Interrogation Session [id number] CV DEVICE CHECK Type Interrogation Session Remote Scheduled CV DEVICE CHECK Implantable Pulse Generator [employer] Official BSX CV DEVICE CHECK Implantable Pulse Generator Type ILR CV DEVICE CHECK Implantable Pulse Generator Model M312 CV DEVICE CHECK Implantable Pulse Generator Serial Number [id number] CV DEVICE CHECK Implantable Pulse Generator Implant Date 20250125 CV DEVICE CHECK Battery Status Beginning of Service CV DEVICE CHECK Atrial Tachy Statistic AT/AF [place] Percent 0.00 CV DEVICE CHECK Date of Service 2025-05-09 CV DEVICE CHECK Anatomical Region Laterality Modality Device Interroga tion 05/02/2025 12:5 2 AM EDT Impressions 05/03/2025 1:04 PM EDT Normal Remote: No Events * This is a normal remote diagnostic device check * Alerts or events: None * Battery data was reviewed * Battery status: CORINNE, * Presenting rhythm reviewed * Heart Rate Histograms reviewed Additional Notes: False pause episodes Narrative Procedure Note Sandro Waller MD - 05/04/2025 IMPRESSION: Normal Remote: No Events * This is a normal remote diagnostic device check * Alerts or events: None * Battery data was reviewed * Battery status: CORINNE, * Presenting rhythm reviewed * Heart Rate Histograms reviewed Additional Notes: False pause episodes Sandro Waller MD CV IMPLANTABLE CARDIAC DEVICE PROCEDURES Final Result * PRIYA SCREENING DIGITAL (10/12/2022 5:00 PM EST) Anatomical Region Laterality Modality Mammography 10/12/2022 3:20 PM EST Narrative 10/12/2022 5:[address] [facility] Diagnostic Imaging Department [address] [place] [address] Patient: TEOFILO FRAZIER /Age/Sex: 1970 - 52 - F Unit#: [id number] Location/Status: SPDIMAM/REG CLI Mnemonic/Ordering Site: [facility] Ordering Physician: ISMAEL SANDERS MD [facility] Screening Digital - 10/12/22 - 163 EXAM: [facility] Screening Digital EXAM DATE AND TIME: 10/12/2022 4:35 PM HISTORY: Screening. COMPARISON: 02/24/21, 08/02/19, 07/28/17 TECHNIQUE: CC and MLO views of both breasts were obtained using full field digital mammography. Bilateral digital breast tomosynthesis was performed in the MLO projection. Computer aided detection with [employer] 7.2-H and [employer] 3D 3.1 was employed. TISSUE DENSITY: c. [...] appearance of the breasts. No evidence of malignancy is seen. A negative mammogram in the presence of a clinically suspicious palpable abnormality does not preclude the possibility of malignancy or alter the indications for biopsy. BI-RADS: Category 2: Benign RECOMMENDATION(S): 1: Routine screening mammogram BILATERAL in 1 year. 29431, 11895 3342F, 7042F Dictating Physician: ERUM MCGOVERN MD Electronically Signed by: ERUM MCGOVERN MD Dic Date/Time: 10/12/221699 Sign date/Time: 10/12/221699 Procedure Note Erum Mcgovern MD - 11/11/2023 [facility] Diagnostic Imaging Department [address] [place] [id number] Patient: KATETEOFILOO.B./Age/Sex: 1970 - 52 - F Unit#: [id number] Location/Status: [facility]/REG CLI Mnemonic/Ordering Site: [facility] Ordering Physician: ISMAEL SANDERS MD [facility] Screening Digital - 10/12/22 - 1635 EXAM: [facility] Screening Digital EXAM DATE AND TIME: 10/12/2022 4:35 PM HISTORY: Screening. COMPARISON: 02/24/21, 08/02/19, 07/28/17 TECHNIQUE: CC and MLO views of both breasts were obtained using fullfield digital mammography. Bilateral digital breast tomosynthesis was performedin the MLO projection. Computer aided detection with [employer] 7.[employer]H [employer] 3D 3.1 was employed. TISSUE DENSITY: c. [...] Routine screening mammogram BILATERAL in 1 year. 83075, 35669 3342F, 7048F Dictating Physician: ERUM MCGOVERN MD Electronically Signed by: ERUM MCGOVERN MD Dic Date/Time: 10/12/22 170 Sign date/Time: 10/12/22 170 Ismael Flores MD IMG BI PROCEDURES Final Result from Last 3 Months or Most Recently Relevant to Health Maintenance Insurance [facility] Care Teams Crane Mechanic Relationship Specialty Start Date End Date Sandro Dowling MD [address] [place] [id number] PCP - General Internal Medicine 11/28/24
[2025-05-09 17:55] LABS: MANUAL DIFF FLAG NO
[2025-05-09 18:28] LABS: Hematocrit 48.3 % (37.0-47.0); Hemoglobin 16.6 g/dl (12.0-16.0); Imm Gran Abs Auto 0.03 X10*3/uL (0.00-0.03); Imm Gran Pct Auto 0.4 % (0.0-0.4); Lymphocytes Absolute Auto 3.5 X10*3/uL (1.2-4.9); Mean Corpuscular HGB Conc 34.4 g/dl (31.0-35.0); Mean Corpuscular Hemoglobin 31.1 pg (27.0-33.0); Mean Corpuscular Volume 90.4 fL (80.0-98.0); NRBC Abs Auto 0.020 X10*3/uL (0.0-0.012); NRBC Pct Auto 0.2 /100WBC (0.0-0.2); Platelet Count 227 X10*3/uL (160-400); Red Blood Count 5.34 X10*6/uL (4.20-5.50); White Blood Count 8.5 X10*3/uL (4.8-10.8)
[2025-05-09 18:29] LABS: Alanine Aminotransferase 16 U/L (0-31); Albumin Level 4.4 g/dL (3.5-5.0); Aspartate Amino Transferase 27 U/L (5-31); Estimated Glomerular Filt Rate > 60
== END 2025-05-09 13:05 | disposition home or self-care (01) ==
LOC: HO.HHCL 13:04
PROVIDERS: PCP Internal Medicine; Visit Provider Internal Medicine Rheumatology
DX: M06.9 Rheumatoid arthritis, unspecified (principal); M19.049 Primary osteoarthritis, unspecified hand
CPT/HCPCS: 36415; 82040; 82565; 84450; 84460; 85025; 85652; 86140